=== PATIENT | male | born 1940 | race Caucasian/White ===

== ENCOUNTER 2024-10-11 18:21 | Inpatient (IN) | payer OTHER, SELFPAY ==
[2024-10-11 18:26] VITALS: BP 124/68; BMI 24.5
--- NOTE | 2024-10-11 18:38 | PTCARENOTE ---
Rec'd pt as transfer from [facility]. Pt is AOx3. Tele- V-paced. HR 70s. BP 124/68. Pt on 2L O2 NC on arrival and sating 100%. Pt currently has no complaints of pain/discomfort/sob at this time. Oriented pt to room. Family at bedside. Currently
in bed; call edwar w/in reach.
--- NOTE | 2024-10-11 19:42 | HPS.HSE ---
Family Physician
-
Family Physician: Alek Mireles
Chief Complaint
-
shortness of breath
History of Present Illness
84-year-old male past medical history of CAD status post CABG x 2 in 2018, ischemic cardiomyopathy status post Biotronik biventricular cardiac pacemaker (LINE CLEARANCE FOREMAN-P) last replaced 7 years ago at [place], ventricular tachycardia, permanent atrial
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
on CPAP, presenting as a transfer from [facility] for concern for infected pacemaker/ICD.
Patient originally came to [facility] on 10/04 for fever, cough and shortness of breath. He was initially thought to have pneumonia and treated with ceftriaxone/azithromycin. Blood culture showed MSSA with concern for endocarditis. Patient
underwent TTE which showed severely enlarged right ventricle, severely dilated left atrium, severely dilated right atrium, severe tricuspid regurgitation, no evidence of endocarditis or vegetation. Moderately reduced RV systolic function. Left
ventricular ejection fraction of 55 to 60%. Patient later underwent DAVID which also did not show evidence of endocarditis. Patient was treated with cefazolin repeat blood cultures were negative.
Patient was also gently diuresed while at [facility].
Patient was transferred to [facility] for consideration of pacemaker via revision procedures and lead/device extraction.
He denies any chest pain or shortness of breath at this time but complains of ongoing shortness of breath this hospitalization. Denies any weight gain or weight loss.
He denies smoking or alcohol use or drug use.
His brother had heart disease.
Medical History
Past Medical History
Past Medical History: Reports Other (CAD status post CABG x 2 in 2018, ischemic cardiomyopathy status post Biotronik biventricular cardiac pacemaker (LINE CLEARANCE FOREMAN-P) last replaced 7 years ago at [place], ventricular tachycardia, permanent atrial fibrillation on
Eliquis, moderate to severe tricuspid regurgitation, moderate aortic stenosis, obstruct)
Past Surgical History: Reports Other (CABG )
Social History
Tobacco: Non-smoker
Alcohol: None
Drug: None
Family History
Family History: Not pertinent
Allergies / Home Medications
Allergies reflects when Allergies were last updated in [employer]
Home Medications with original date entered in [employer]
Allergy/Medication List:
Allergies
Allergy/AdvReac Type Severity Reaction Status Date / Time
No Known Drug Allergies Allergy Unknown Unknown Verified 09/27/17 09:15
Home Medications
amlodipine 2.5 mg tablet 2.5 mg PO DAILY 09/27/17
aspirin 81 mg chewable tablet ([facility] Parag Aspirin) 81 mg PO DAILY 09/27/17
finasteride 5 mg tablet 5 mg PO DAILY 09/27/17
furosemide 40 mg tablet 40 mg PO DAILY 09/27/17
glucosamine sulfate 500 mg capsule 2,000 mg PO DAILY 09/27/17
tamsulosin 0.4 mg capsule 0.4 mg PO DAILY 09/27/17
warfarin 2 mg tablet 8 mg PO SUTUTHSA 09/27/17
warfarin 6 mg tablet 6 mg PO MOWEFR 09/27/17
Review of Systems
-
Constitutional: Reports No Symptoms
EENT: Reports No Symptoms
Respiratory: Reports No Symptoms
Cardiac: Reports No Symptoms
Abdomen/GI: Reports No Symptoms
: Reports No Symptoms
Musculoskeletal: Reports No Symptoms
Skin: Reports No Symptoms
Neurological: Reports No Symptoms
Endocrine: Reports No Symptoms
Hematologic/Lymphatic: Reports No Symptoms
Psych: Reports No Symptoms
Physical Exam
Vital Signs
Vital Signs
Temp Pulse Resp BP Pulse Ox
98.3 F 70 18 124/68 98
10/11/24 18:25 10/11/24 18:30 10/11/24 18:25 10/11/24 18:26 10/11/24 18:26
Physical Exam
General: Well Developed, Well Nourished and No Apparent Distress
HEENT: NormoCephalic, Moist mucous membranes and Atraumatic
Respiratory: Clear
Cardiac: S1/S2 and Regular Rhythm; No Murmur or Rub
GI: Soft, Non Tender, Non Distended and Normal Bowel Sounds; No Organomegaly
Rectal: Deferred by Provider
Musculoskeletal: No Clubbing, No Cyanosis and No Edema
Skin: No Rash
Neuro: Nonfocal/grossly intact
Data Reviewed
-
Lab Data: Labs Reviewed by me
Old Records: Reviewed
Impression/Plan
-
IMPRESSION:
PLAN:
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
-Repeat blood cultures were clear as per documentation although could not obtain exact date
-TTE and DAVID did not show any evidence of vegetation or endocarditis
-Recheck blood cultures
- Cefazolin for 6 weeks
- Cardiology consult
- ID consulted
- N.p.o. postmidnight for pacemaker revision procedure/device extraction
- Hold Eliquis, heparin drip instead
# Severe aortic stenosis
- Would likely need evaluation for TAVR after evaluation of pacemaker
CAD status post CABG x 2 in 2018
Chronic HFpEF/ischemic status post Biotronik biventricular cardiac pacemaker
- Was gently diuresed at [facility], hold further diuresis for now
- Continue spironolactone
-Continue metolazone
-Resume home torsemide 20 mg twice daily
- Patient normally on Coreg 6.25 twice daily, resume
History of ventricular tachycardia
Permanent atrial fibrillation
- Heparin drip instead of Eliquis
Moderate to severe tricuspid regurgitation
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
Hyperlipidemia
- Continue statin
Obstructive sleep apnea
- Continue CPAP at night
BPH
- Continue finasteride, tamsulosin
GERD
- Continue Protonix
Anxiety/depression
- Continue sertraline
Full code
DVT prophylaxis�heparin drip
Cardiac diet, n.p.o. past midnight
[2024-10-11 21:11] LABS: Hematocrit 34.3 % (39.0-52.0); Hemoglobin 11.3 g/dL (13.0-18.0); Mean Corp Hgb Conc. 32.9 g/dL (33.0-37.0); Mean Corpuscular Volume 99.7 fL (80.0-94.0); Platelet Count 119 10^3/uL (130-400); Red Cell Dist. Width 13.9 % (11.5-14.5)
[2024-10-11 21:13] LABS: APTT 37.3 Sec (23.4-35.0)
[2024-10-11 21:18] VITALS: BMI 24.5
[2024-10-11] MEDS: HEPARIN 25000 UNITS/250 ML IV (21:31)
[2024-10-11] MEDS: COREG 6.25 MG PO (21:34)
[2024-10-11] MEDS: ANCEF 10 IV (21:34)
[2024-10-11 21:36] VITALS: BP 141/68
[2024-10-11 23:01] VITALS: PULSE 70
[2024-10-12] VITALS (15 sets, daily range): BP systolic 84–150; BP diastolic 53–128
--- NOTE | 2024-10-12 00:33 | PTCARENOTE ---
Received pt @ change of shift. Pt had just been tx from [facility]. Hospitalist informed. AAOx3, VSS on 2L NC. Admission completed.
Once orders in place-- Blood work completed, heparin gtt initiated @ 800 units/hr. Discussed plan of care for evening, including PTT draws Q6H and NPO after midnight. Pt verbalizes understanding. Call vann within reach.
[2024-10-12 03:40] LABS: Hematocrit 30.9 % (39.0-52.0); Hemoglobin 10.2 g/dL (13.0-18.0); Mean Corp Hgb Conc. 33.0 g/dL (33.0-37.0); Mean Corpuscular Volume 98.1 fL (80.0-94.0); Nucleated Red Blood Cells % 0 % (-); Platelet Count 114 10^3/uL (130-400); Red Cell Dist. Width 14.0 % (11.5-14.5)
[2024-10-12 03:53] LABS: APTT 46.9 Sec (23.4-35.0)
[2024-10-12 04:06] LABS: ALT (SGPT) 21 U/L (0-50); AST (SGOT) 27 U/L (17-59); Albumin 3.4 g/dl (3.5-5.0); Alkaline Phosphatase 98 U/L (38-126); Blood Urea Nitrogen 24 mg/dl (9-20); Calcium 9.7 mg/dl (8.4-10.2); Carbon Dioxide 35 mmol/L (22-30); Chloride 99 mmol/L (98-107); Estimated Creatinine Clearance 62 ml/min; Glucose 104 mg/dl (70-99); Potassium 4.3 mmol/L (3.5-5.1); Sodium 136 mmol/L (135-145); Total Protein 6.8 g/dl (6.3-8.2); eGFR > 60.00
[2024-10-12] MEDS: ANCEF 10 IV ×3 (06:23→22:32)
--- NOTE | 2024-10-12 08:09 | CON.CAR ---
Addendum entered and electronically signed by León Vicente MD 10/12/24 10:27:
Patient was seen and evaluated personally. I agree with the note, documentation and plan of care and physical examination as noted below.
Briefly, 84-year-old gentleman with a history of coronary disease, peripheral artery disease, recovered cardiomyopathy with LVEF of 55%, went to tachycardia, permanent atrial fibrillation, hypertension, moderate aortic stenosis and severe TR, severe
right-sided RV failure, history of CVA, obstructive sleep apnea on CPAP. Patient does have Biotronik SURGICAL CODER�P device on the right shoulder. Patient's atrial and ventricular leads are from 2014 and CS lead was upgraded back in 2018. Patient did develop
ventricular tachycardia and required a defibrillator which was subcutaneous [employer] defibrillator which was placed in the left axilla. He does have a history of CABG x 2 in 2018 which was done with thoracotomy. He has had left and right
sided CEA. His aortic stenosis is managed conservatively. He presented now with fevers, rigors, chills, and fatigue and pneumonia which was treated with ceftriaxone but had developed MSSA. With MSSA bacteremia, he underwent DAVID with high suspicion
of endocarditis. No obvious vegetations were noted. Patient was sent to [facility] for extraction of the hardware. Patient is 100% BiV paced. He has not used his atrial lead with his permanent atrial fibrillation. Our plan is to remove all
hardware including atrial, ventricular and CS lead along with the generator. Postop we will pacing with temporary pacemaker. We will proceed if appropriate to place leadless pacemaker which reduces to infections.
Patient remains moderate to high risk with this severe complicated past medical history and 12 years of pacemaker leads. Patient's venous system was already occluded back in 2018 when he had an upgrade. It is expected to have significant adhesions
and risk of perforation is quite high. Given his prior vascular and cardiac history, the risk of complications are moderate to high. This is life-threatening for this patient. The bacteremia itself is dangerous and less likely to be cleared with
antibiotics. We discussed in detail the options of conservative management with chronic antibiotics versus extraction of the vascular system. With long discussion with patient and his , we decided to proceed with the extraction procedure for the
whole system and proceeding with leadless pacemaker as noted above.
Original Note:
Consultation
Consultation Request
Date/Time Consultation Requested: 10/11/24 10:25p
Date/Time Consultation Performed: 10/12/24 8a
Requesting Provider: Dr. Cervantes
Performing Provider: SARITA Davis for Dr. Vicente
Reason for Consultation: lead extraction
Medical History
-
Chief Complaint: MSSA bacteremia
History of Present Illness:
Mr. Newton is an 84 yo male (known to Dr. Sebastián Khanna at [facility]) with CAD s/p CABG x 2 in 2018, ICM s/p Biotronik BiV PPM, h/o VT, permanent atrial fibrillation on Eliquis, HTN, HLD, valvular heart disease (mod/severe TR, mod ), PAD s/p left
CEA and right CEA c/b post-op CVA, and LEONOR on CPAP, who presents as a transfer from [facility] for lead extraction due to MSSA bacteremia. He is scheduled today with Dr. Vicente for lead extraction and reimplant. He is admitted to the
hospitalist service. Currently he c/o feeling weak/fatigued.
Past Medical History
Past Medical History: Other (as above)
Past Surgical History: Other (as above)
Social History
Tobacco: Non-Smoker
Alcohol: None
Personal:
Living: With Family
Employment: Retired
Family History
Family History: Reviewed & Not Pertinent
Allergies / Home Medications
Allergy/AdvReac Type Severity Reaction Status Date / Time
No Known Drug Allergies Allergy Unknown Unknown Verified 09/27/17 09:15
�Medication �Instructions �Recorded �Confirmed �Type
finasteride 5 mg tablet 5 mg PO DAILY 09/27/17 09/27/17 History
tamsulosin 0.4 mg capsule 0.4 mg PO DAILY 09/27/17 09/27/17 History
apixaban 2.5 mg tablet (Eliquis) 2.5 mg PO BID 10/11/24 10/11/24 History
carvedilol 6.25 mg tablet (Coreg) 6.25 mg PO BID 10/11/24 10/11/24 History
metolazone 2.5 mg tablet 2.5 mg PO DAILY 10/11/24 10/11/24 History
pantoprazole 40 mg tablet,delayed 40 mg PO DAILY 10/11/24 10/11/24 History
release
rosuvastatin 10 mg tablet 10 mg PO DAILY 10/11/24 10/11/24 History
sertraline 25 mg tablet 25 mg PO DAILY 10/11/24 10/11/24 History
spironolactone 25 mg tablet 12.5 mg PO DAILY 10/11/24 10/11/24 History
Review of Systems
-
History Source: Patient
All other systems: Negative unless noted
Physical Exam
Vital Signs
Temp Pulse Resp BP Pulse Ox
98.3 F 69 18 98/55 94
10/12/24 03:36 10/12/24 03:30 10/12/24 03:36 10/12/24 03:09 10/12/24 03:36
Lab Results
10/12/24 03:23
10/12/24 03:23
Physical Exam
General: Well Developed and No Apparent Distress
HEENT: Normocephalic, Anicteric and Moist Mucous Membranes
Respiratory: Clear and Non Labored Respirations
Cardiac: S1/S2 and Irregular Rhythm
Breast: Deferred by me
GI: Soft, Non Tender and Normal Bowel Sounds
Rectal: Deferred by Provider
Genito-urinary: No Costovertebral Tender
Musculoskeletal: No Clubbing, No Cyanosis and No Edema
Skin: Warm and Dry
Neuro: AO x 3
Hematologic/Lymphatic: No Lymphadenopathy
Psych: Calm
Impression / Plan
-
MSSA Bacteremia - acute, treated with IV ABX per ID.
- concern for infected BiV PPM.
BiV PPM - Biotronik device.
- plan for lead extraction and reimplant today with Dr. Vicente.
CAD - stable w/o angina, continue medical therapy.
- s/p CABG x 2
HTN - stable on meds, continue.
Afib - permanent.
- rate controlled on Coreg, continue.
- Eliquis held for procedure, on arrival started on IV Heparin that was just turned off procedure.
LEONOR - stable on CPAP.
Data Reviewed
-
EKG: Tracing Personally Visualized and interpreted
Medical Tests (Nuc Med, Echo etc): Report Reviewed by me (echo 08/2024: EF 50-55%, mild , RV is severely dilated and moderate to severely hypokinetic, RA massively dilated, LA mod dilated, severe TR, mild MR)
Labs: Labs Reviewed by me
Old Records: Reviewed
[2024-10-12] MEDS: PROTONIX 40 MG PO (09:10)
[2024-10-12] MEDS: ALDACTONE 12.5 MG PO (09:10)
[2024-10-12] MEDS: PROSCAR 5 MG PO (09:10)
[2024-10-12] MEDS: CRESTOR 10 MG PO (09:10)
[2024-10-12] MEDS: FLOMAX 0.4 MG PO (09:10)
[2024-10-12] MEDS: ZOLOFT 25 MG PO (09:11)
[2024-10-12] MEDS: COREG 6.25 MG PO (09:11)
[2024-10-12] MEDS: ZAROXOLYN 2.5 MG PO (09:12)
--- NOTE | 2024-10-12 09:35 | CON.ID ---
Consultation
-
Date/Time Consultation Requested: October 11, 20242225
Date/Time Consultation Performed: October 12, 2024 3680
Requesting Provider: Dr. Hitesh Cervantes
Performing Provider: Dr. Yvonne Pryor
Reason for Consultation: MSSA bacteremia
Chief Complaint / Past History
Chief Complaint
Weakness and fever
History of Present Illness
History obtained from review of outside medical records, from patient and from his at bedside. He is an 84-year-old male with history of atrial fibrillation, ischemic cardiomyopathy status post pacemaker placement, AICD placement, aortic
stenosis who recently presented to [facility] October 04 with progressive weakness, then developed fever, chills, confusion, cough and shortness of breath. In the ED temperature 100.8. Positive leukocytosis. Chest x-ray showed small
bilateral pleural effusions. Admission blood cultures grew methicillin-sensitive Staphylococcus aureus. He was seen by infectious disease who changed to ceftriaxone/azithromycin to cefazolin 2 g IV every 8 hours and recommended DAVID. October 10 DAVID
showed severe aortic stenosis, severely enlarged right ventricle, however no vegetation seen valves or device leads. Device extraction still recommended and therefore patient was transferred to [facility] yesterday. Patient reports
he is feeling better. Mentation is now at baseline. No further chills. He denies chest pain. Cough improving. He still feels weak. No other foreign body except for cardiac devices. No back pain.
Past History
Additional Past Medical History:
Atrial fibrillation
CAD status post CABG x 2
Ischemic cardiomyopathy status post Biotronik biventricular cardiac pacemaker (GRINDING WHEEL INSPECTOR-P) last replaced 7 years ago at [place]
Aortic stenosis
LEONOR on CPAP
Bilateral CEA
Allergy History:
No Known Drug Allergies Allergy (Unknown, Verified 09/27/17 09:15)
Unknown
Medications Reviewed: Yes
Current Antibiotics:
cefazolin
Social History
Tobacco: Non-Smoker
Alcohol: None
Drug: None
Personal:
Living: With Family
Family History
Family History: Not Pertinent
Review of Systems
Review of Systems
General: Change in Appetite
HEENT: Negative Headache or Pharyngitis
Cardiovascular: Dyspnea; Negative Chest Pain
Gasteroenterology: Negative Nausea, Vomiting or Diarrhea
Genital / Urological: Negative Dysuria or Flank Pain
Endocrine: Weakness and Fatigue
Musculoskeletal: Negative Joint Swelling or Arthralgias
All systems: All other systems were reviewed and were negative
Vital Signs
Temp Pulse Resp BP Pulse Ox
98.6 F 73 18 121/67 96
10/12/24 07:56 10/12/24 07:56 10/12/24 07:56 10/12/24 07:56 10/12/24 07:56
Physical Exam
Physical Exam
Constitutional: No Acute Distress and Comfortable
Head: Other (No frontal or max or sinus tenderness)
Eyes: No Conjunctival Hemorrhage and Sclera Anicteric
Cardiovascular: Regular Rate, S1/S2 and Murmur (Right upper sternal border)
Pulmonary: Rales (R base) and Other
Gastrointestinal: Soft, Non Tender and Non Distended
Genito-Urinary: Negative CVA Tenderness
Extremities: Negative Edema
Musculoskeletal: Negative Spinal Tenderness
Neurological: AO x 3
Lab / Diagnostic Study Results
10/12/24 03:23
10/12/24 03:23
Abs Immat Gran (auto) 0.1 10^3/uL (0-0.05) H 10/12/24 03:23
Absolute Neuts (auto) 5.7 10^3/uL (1.4-6.5) 10/12/24 03:23
Absolute Lymphs (auto) 0.9 10^3/uL (1.2-3.4) L 10/12/24 03:23
Absolute Monos (auto) 0.6 10^3/uL (0.1-0.6) 10/12/24 03:23
Absolute Basos (auto) 0.0 10^3/uL (0-0.2) 10/12/24 03:23
Immature Gran % 1.5 % (0-0.5) H 10/12/24 03:23
Neutrophils % 71.6 % (42.2-75.2) 10/12/24 03:23
Lymphocytes % 11.0 % (20.5-51.1) L 10/12/24 03:23
Monocytes % 8.1 % (1.7-9.3) 10/12/24 03:23
Eosinophils % 7.3 % (0-6) H 10/12/24 03:23
Basophils % 0.5 % (0-2) 10/12/24 03:23
Microbiology Results
Micro:
10/11/24 21:30 Blood Culture - Pending
Blood/Venous
10/11/24 20:47 Blood Culture - Pending
Blood/Venous
10/11/24 18:48 MRSA Screen - Pending
Nose
Assessment / Plan
# MSSA bacteremia OSH (sensitive: oxacillin, tetra, t/sulfa, clinda)
# Fever resolved
# Presence of AICD/PPM
# Afib, CAD, ICM
- Follow repeat blood cultures
- Outside DAVID neg vegetation
- Agree with AICD/PPM total extraction, culture leads.
- Continue cefazolin 2g IV q8 x 6 weeks from device extraction.
Care Review
Plan reviewed with: Physician (Dr. Carina Gates)
--- NOTE | 2024-10-12 10:35 | W.PN.UPDATE ---
Update Note
Progress Note Update
Consent for lead extraction:
Mr. Newton is an 84 year old male (known to Dr. Khanna, his primary Marketing Researcher) with recovered heart failure with EF 50-55% s/p right shoulder MANAGER OF LEARNING-P (Atrial and RV leads fro 2013; and CS upgraded lead from 2018 Venous occlusion noted at that time),
and VT s/p subQ ICD placement, moderate , permanent atrial fibrillation with h/o CAD s/p two vessel CABG in 2018, PAD s/p left and right CEA for carotid stenosis, CVA presented with MSSA bacteremia and is admitted with Endocarditis/hardware
infection and is recommended for hardware removal with laser and lead mechanical engineer extraction. Patient is pacemaker dependent and will be in need for temporary / permanent pacemaker placement while still on antibiotics and any other sources of
infection remains.
Date of the consent and discussion:
10/12/2024
Indications:
MSSA bacteremia and need for hardware removal / lead extraction and re-implantation with pacemaker dependency.
Performing Physician:
León Vicente MD
Condition of Patient at Time of Consent:
Patient was alert and awake and was hemodynamically stable with no neurological or vascular compromise. He was able to understand the risks involved and asked appropriate questions. He was noted to be in adequate state of mind to provide informed
consent. His was present in the room and participated in the consent discussion. Both of them were informed in detail. All questions answered. Patient, his and all other involved healthcare providers are in agreement for the need for the
extraction.
Detailed Description of the Consent:
Informed consent was obtained from the patient after a full explanation of the risks and benefits of the procedure including the risks of sedation and anesthesia.
I was able to discuss the case in detail with the patient. The risks of major complications including bleeding, infection, venous rupture, removal of the entire system without the ability to replace it, cardiac eversion or damage to the cardiac
tissue, malignant arrhythmia, coronary vascular damage, need for urgent bypass surgery and sternotomy, even stroke and were discussed in detail. The risk of major complications are <5% per lead. Patient understood the risks and benefits
involved with the procedure.
He agrees that he needs to have his device extracted. He is at a high risk with prior cardaic surgery, RV failure, long standing system, prior vascular occlusion, and sepsis with hypotension for the procedure. Given his limited options available, I
was able to offer him the laser / lead mechanical engineer extraction and re-implantation.
Plan is for lead extraction and re-implant a temporary permanent pacemaker and once infection clears then subsequent re-implantation of pacemaker � temporary permanent vs leadless pacemaker.
MSSA bacteremia / sepsis noted. Blood is now clear for the past one day and acceptable for the implant of temporary permanent device.
Tele- V Paced
Plan for Laser lead extraction
Summary:
Informed consent was obtained for laser and lead mechanical engineer extraction and hardware removal and implantation of temporary or permanent pacemaker.
--- NOTE | 2024-10-12 10:37 | PTCARENOTE ---
Rec'd Pt at change of shift, A,A+Ox3, Pt c/o feeling weak, with general body aches. Lungs with bibasilar crackles, O2 sat on RA 89-90%. Pt back on O2 at 2/l/min, O2 sat 96% on 2L. Heparin drip D/C'd as per order. Pt going for lead extraction today.
Type and crossmatch drawn as ordered. PT seen by anethesia, Dr Vicente and Dr Gates today. clinical lab specialist nurses came to pick him up, report given to Brittany.
--- NOTE | 2024-10-12 11:02 | CM ---
pt in clinical lab scientist for procedure
[2024-10-12 13:08] LABS: ACT-LR - POC 131 Seconds (116-155)
--- NOTE | 2024-10-12 13:46 | W.PN.HOSP.TC ---
Today's Communication/Plan
-
Eliquis resumption per cardiology recommendation
Maintained on metolazone, further diuresis per cardiology
Continue on Ancef
Records reviewed
Assessment / Plan
Assessment / Plan
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
-Repeat blood culture reported to be clear at [facility]
-TTE and DAVID did not show any evidence of vegetation or endocarditis
-Cefazolin for 6 weeks
- ID consulted for further help
-EP cardiology to patient for pacemaker extraction and reimplantation
-Eliquis switched to heparin drip and can be resumed back per cards
# Severe aortic stenosis
- Would likely need evaluation for TAVR after evaluation of pacemaker
#CAD status post CABG x 2 in 2018
Chronic HFpEF
Ischemic cardiomyopathy
-Continue spironolactone
-Continue metolazone, further diuresis per cards.
-Patient normally on Coreg 6.25 twice daily, resume
# History of ventricular tachycardia
Permanent atrial fibrillation
- Heparin drip instead of Eliquis
Moderate to severe tricuspid regurgitation
Obstructive carotid artery disease status post left CEA
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
Hyperlipidemia - Continue statin
Obstructive sleep apnea - Continue CPAP at night
BPH - Continue finasteride, tamsulosin
GERD - Continue Protonix
Anxiety/depression - Continue sertraline
Full code
DVT prophylaxis�heparin drip
case discussed with ID
Records from [facility] reviewed.
Total time spent ; 52 mins
Anticipated Discharge: 24 - 48 hours
Subjective/Interval History
-
Date of Service: October 12, 2024
Resting comfortably in bed
Having some shortness of breath
On oxygen through nasal cannula
Afebrile
Objective Data
-
Labs:
Laboratory Results
08/08/25 08/08/25
03:23 10:20
WBC 7.9
Hgb 10.2 L
Hct 30.9 L
Plt Count 114 L
APTT 46.9 H Pending
Sodium 136
Potassium 4.3
Chloride 99
Carbon Dioxide 35 H
BUN 24 H
Creatinine 0.8
Glucose 104 H
Calcium 9.7
Total Bilirubin 0.9
AST 27
ALT 21
Alkaline Phosphatase 98
Vital Signs:
Vital Signs
Temp Pulse Resp BP Pulse Ox
98.6 F 70 18 121/67 89
10/12/24 07:56 10/12/24 10:15 10/12/24 07:56 10/12/24 08:51 10/12/24 08:51
Review of Systems
-
Respiratory: Reports Trouble Breathing; Denies Cough
Cardiac: Reports No Symptoms
Abdomen/GI: Reports No Symptoms
Physical Exam
-
General: No Apparent Distress and Comfortable
HEENT: Oxygen (NC)
Respiratory: Rhonchi and Other (Right chest pacemaker scar - no tenderness/swelling)
Cardiac: Regular Rhythm and S1/S2; Negative Murmur or Rub
Musculoskeletal: No Edema
Neuro: Awake, Alert, Oriented, No Motor Deficits and Nonfocal/Grossly Intact
Psych: Calm
--- NOTE | 2024-10-12 16:00 | PTCARENOTE ---
Patient received from OR. Pt drowsy but arrousable. AOx4, 100% v paced on monitor with underlying Afib, 6L face mask transferred to 4L NC, patient satting 99%. O2 gradually weaned to 2L NC, satting 100%. SBP 110s-120s via L brachial ART line. Cuff
and ART correlate at this time, ART waveform appropriate. Hypoactive bowel sounds. Temp sensing eric in place, I/Os cahrted. Core temp 95F at this time, bear hugger applied. B/L radial puncture dressing CDI. L groin site CDI. R groin site with
figure of 8 sutures intact, site CDI. B/L groin soft with no oozing or hematoma noted at this time. R upper chest wall dressing with sterri strips and aquacel in place, CDI. EKG obtained. TeraFirrma at bedside to check micra that was placed in
OR. at bedside. Initially, while patient was still coming out of anesthesia, patient required frequent reminder to no bend knees and keep legs and L arm straight. Patient redirectable. All needs met at this time, call vann within reach.
--- NOTE | 2024-10-12 16:21 | ITS.CL.PN ---
[employer] - Procedure Note
Procedure
Procedure Note:
Extraction Procedure:
Laser Extraction of Cardiac Resynchronization Therapy (DEMONSTRATOR SALES-P) system including extraction of RV lead, RA pacing lead and the coronary sinus left ventricular lead and placement of temporary pacemaker and then implantation of leadless pacemaker.
Mr. Newton is an 84 yo male (known to Dr. Hayden Khanna at [facility]) with CAD s/p CABG x 2 in 2018, ICM s/p Biotronik BiV PPM, h/o VT, permanent atrial fibrillation on Eliquis, HTN, HLD, valvular heart disease (mod/severe TR, mod ), PAD s/p left
CEA and right CEA c/b post-op CVA, and LEONOR on CPAP, with MSSA bacteremia and endocarditis and is recommended hardware removal. Patient was referred for lead extraction and removal of all hardware.
Indications: MSSA endocarditis
Date of the Procedure: 10/12/2024
Pre-Operative Diagnosis: Infected DEMONSTRATOR SALES-P system
Post-Operative Diagnosis: Infected DEMONSTRATOR SALES-P system
Procedure Performed: Multiple lead extraction, pocket washout and generator removal, temporary pacer wire placement and implantation of leadless pacemaker.
�
Performing Physicians:
León Vicente MD
Anesthesia:
See anesthesia records
Detailed Description of the Procedure:
Written informed consent was obtained from the patient after a full explanation of the risks and benefits of the procedure. The patient was brought to the lab in the fasting state. Prophylactic antibiotics were given prior to the start of the
procedure. Continuous electrocardiographic and hemodynamic monitoring was initiated.
The initial rhythm was BIV paced rhythm with underlying atrial fibrillation. .
The sub-Q ICD device was interrogated and all the tachy-therapies were turned off.
General anesthesia with intubation and mechanical conventional ventilation used. Anesthesia staff performed intubation monitored the patient during case. The ventral torso was meticulously prepared with surgical scrub and allowed to dry with no
pooling. Sterile draping was applied to cover the operative field. The image intensifier was draped with a sterile bag and positioned over the patient's chest.
A surgical pause was performed in accordance with hospital regulations. Anesthesia service provided sedation as reported separately. Antibiotics administered IV for risk of bacterial colonization.
Groin Prep and vascular access:
After infiltration with lidocaine, large bore venous access was established via the right and left femoral veins. An intra-arterial catheter was placed via the right femoral artery for emergency access.
Following sheath were placed.
��������������� 8Fr in right femoral vein upgraded to
��������������� 12 Fr peel away sheath in right femoral vein
��������������� 6 Fr sheath in left femoral vein
��������������� 5Fr sheath in right femoral artery
The left femoral artery was cannulated but the wire could not be advanced and no sheath was placed.
Using the 12 Fr sheath the guidewire was placed from the right femoral vein to the right subclavian vein.
Temporary Pacemaker Placement:
A 6Fr temporary wire was placed in the right groin via a 6Fr sheath. The temp wire was advanced and placed in the RV with adequate threshold noted. The temp wire was placed at VVI 70.
It was removed under fluoroscopy guidance at the end of the case.
Endovascular occlusion balloon deployment:
A 6 Fr sheath was placed and the guidewire was placed from the right femoral vein to the right IJ.
Then a 12 Fr sheath was placed over the guidewire was placed from the right femoral vein to the right IJ. An endovascular occlusion balloon was advanced over the guidewire into the SVC. The balloon was inflated with 20% contrast and adequate
occlusion of the SVC identified. The balloon was deflated and pulled down to the IVC.
Another 6 Fr sheath was placed in the left femoral vein for the anesthesia administration.
Pocket Exploration:
After infiltration with lidocaine, an incision was made in the right delto-pectoral groove over the previously implanted device. Using blunt dissection and electrocautery, the incision was carried down to the level of the device, being careful to
maintain adequate hemostasis and not disrupt the previously implanted leads. Fluoroscopy was performed with showed normal appearance of the existing leads and during the procedure. Superficial cultures were obtained. The generator pocket was
accessed. There was cloudy fluid draining from the pocket and the aerobic and anaerobic cultures were obtained. The generator was removed from the pocket. The leads were individually released from the scar tissue and the fibrotic tissue was removed.
A purse string suture using 2-0 Vicryl was deployed to be tied at the end for hemostasis.
LV lead extraction:
The leads were stuck and could not be removed with manipulation and manual pull. The lead was cut and was sized and an EZ LLD was deployed that was successfully moved to the proximal electrode of the CS lead. The 14F JumpChat Laser Sheath was
tested using the CVX-300 system and found to meet specifications. An ETHICON SA8 2 Perma-hand Silk, black braided, 60inch was fixed to the proximal end of the lead to establish additional control.
Under fluoroscopic guidance, tension was applied to the lead via the locking stylet and the suture. Along with an outer sheath, the laser sheath was advanced over the pacing lead under fluoroscopic guidance until resistance was met. Laser energy was
applied in up to 10-second bursts in regions of resistance allowing advancement of the sheaths under fluoroscopic guidance. The CS lead was able to free up and was able to be pulled out. �
RA lead extraction:
The RA lead was removed from the generator and a standard sylet was advanced to the RA lead. It was not able to reach the tip. The rotatory tool was able to unscrew the active fixation mechanism and was able to retrieve the screw into the lead. The
lead remained in place and would not come out. The lead was clipped approximately 4 cm proximal to the entry site into the vein using lead cutting scissors.
The inner channel of the lead was sized and an EZ Lead Locking Device (LLD) was advanced and was able to reach till the bend of the atrial lead. It could not be advanced to the distal tip. The locking mechanism was engaged and the stylet was fixed
in position in the lead. An ETHICON SA8 2 Perma-hand Silk, black braided, 60inch was fixed to the proximal end of the lead to establish additional control.
The lead with the LLD was pulled and laser energy was applied at the subclavian vein. It was able to move out of the RA straightening the atrial loop. With counter traction the lead was pulled and the atrial lead was freed from the atrial tissue.
The tip got freed and the whole lead was able to be pulled out.
Patient remained hemodynamically stable. DAVID showed no accumulation around the heart.
RV lead extraction:
The RV lead was removed from the generator and a stylet was placed that was not able to go beyond the bend under the subclavian vein. Using a rotatory tool the lead was unscrewed but the tip screw did not move.
The lead was clipped approximately 4 cm proximal to the entry site into the vein using lead cutting scissors. The inner channel of the lead was sized and Lead Locking Device (LLD) EZ was inserted into the lead. The LLD was not able to go any lower
than then the subclavian vein. The locking mechanism was engaged and the stylet was fixed in position in the lead. An ETHICON SA8 2 Perma-hand Silk, black braided, 60inch was fixed to the proximal end of the lead to establish additional control.
A 14F JumpChat Laser Sheath was tested using the CVX-300 system and found to meet specifications. Under fluoroscopic guidance, tension was applied to the lead via the locking stylet and the suture. Along with an outer sheath, the laser sheath
was advanced over the pacing lead under fluoroscopic guidance until resistance was met. Laser energy was applied in up to 10-second bursts in regions of resistance allowing advancement of the sheaths under fluoroscopic guidance. Laser energy was
applied at the venous entry site, and in the subclavian vein. The RV lead was freed and was pulled out of the sheath.
The lead and catheters were withdrawn from the venous system. Hemostasis at the venous entry site was obtained using a 2-0 Vicryl pursestring suture.
The pocket was cleaned and rinsed with antibiotics solution
The deep tissue was closed with 2-0 VLOCl. The outer dermis and skin was closed using 4-0 Monocryl sutures. Steri-strips and a sterile dressing were then applied.
�
Leadless Pacemaker implantation:
The Balloon was removed and the guidewire was used to dilate the venous access. The venous access was gradually dilated from 14-24 Polish dilators. Then the 27 Fr Micra outer sheath was successfully and carefully advanced to the RA.
The delivery system of the Micra was prepped with removal of all air underwater and was advanced into the sheath to the RA with continuous saline irrigation. The sheath was pulled back to the IVC and the delivery sheath was advanced into the RV
cavity. The delivery system as placed against the ventricular septum using JIMÉNEZ and KYRGYZ fluoroscopic views. Once adequate location was confirmed, the locked sutures were unlocked and the Micra was slowly advanced pulling back the delivery sheath
releasing the anchoring hooks. The Micra was attached successfully to the RV septum. The threshold was elevated and decision was made to relocate to a different location.
Multiple locations were tested but all had low amplitude and high thresholds. Finally an apical septal location had excellent sensing and thresholds. The PM was tested and adequate sensing and threshold noted.
Next, the tug test was done with the pulling the attached suture under fluoroscopic guidance with the three anchors securely embedded and showed movement and widening of the anchors with pulling them. The PPM again was tested showing stable
thresholds and excellent sensing.
The one side of the suture was cut and the other side was gradually and carefully pulled until free. The delivery system sheath was pulled back to the IVC and the PPM was again tested showing stable numbers.
Procedure End:
The procedure was tolerated well.
A pressure dressing was applied.
The sub-Q ICD was interrogated and the therapies were turned on. The new QRS was low and ICD had significant T wave oversensing increasing risk for the inappropriate shock. The following chagnes were made.
-��������� The Micra was set VVIR 60 to 90 bpm. The higher then 90 bpm would potentially result T wave oversensing induced inappropriate shock,
-��������� The sub-Q ICD therapy threshold increased from 180 bpm to 200 bpm.
The sheaths were removed from the groin. Manual pressure applied to access sites to achieve hemostasis. Anesthesia was reversed and the anesthesia staff extubated then observed the patient until the return of pre-sedation mental status. The patient
was transferred to the recovery area.
Estimated Blood loss:
10 cc
Specimens Removed:
Deep pocket aerobic and anaerobic cultures were obtained..
Urine output:
None
Packs / Drains/ Tubes:
None
Instrument / Sponge Count Correct:
Yes
Complications of the Procedure:
None
Condition of Patient at Time of Transfer:
Hemodynamically stable with no neurological or vascular compromise.
Explanted Device information:
Device information: �
��������������� Generator: Biotronik DEMONSTRATOR SALES-P; Model: [id number]; Serial # [id number]
������������������������������� -implanted on 12/12/2017; explanted on 10/12/2024
��������������� Atrial Lead: Biotronik; Model: [id number]; Serial # [id number]
������������������������������� -implanted on 10/01/2013; explanted on 10/12/2024
��������������� RV Lead: Biotronik; Model: [id number]; Serial # [id number];
������������������������������� -implanted on 10/01/2013; explanted on 10/12/2024
�������������������������������
��������������� LV pacing lead: Biotronik; Model: [id number]; Serial # [id number]
������������������������������� -implanted on 12/12/2017; explanted on 10/12/2024
Implanted device Information:
Medtronic Leadless (Micra) pacemaker-
��������������� Model #: [id number]; Serial Number: [id number] @ RV apical septum
Osvaldo parameter settings were VVIR 70 bpm.�
Measured data in the Micra was sensing of 4.1mV, impedance of 690 ohms and the threshold of 0.25 V at 0.4ms.
Summary:
Successful extraction of the DEMONSTRATOR SALES-P system, placement of temporary pacemaker and implantation of permanent leadless pacemaker
Results/Recommendations:
1-Please follow up CXR and ECHO
2. Please Admit to CVICU for observation.
.
�
León Vicente MD [facility]
Electrophysiology
�
--- NOTE | 2024-10-12 16:24 | CM ---
Reviewed chart. Met with Mrs. Newton to review discharge plans. Mr. Newton was asleep. She states prior to admission they resides together in a one story home with one step to enter. He has a full flight of steps from the basement to get to the main
living area. She states prior to admission he was ambulating with a single point cane. She states he has a walker, single point cane, shower chair and CPAP Machine at home She states he was in [facility] a week prior to transfer. She
states he will need IV ABX for six weeks. She states he has a prescription plan and PACE. She states he has had [facility] in the past. She also states he was in [facility] eleven years ago. She states her son resides two blocks
away and is supportive. She states her daughter resides in [facility] and is also supportive. Will need to see his current functional status to see if he will have any skilled care needs. Telephone call to [facility] Liaison to make
the referral. Sent referral to [facility] to check on co-pay and coverage for IV ABX. Medical work-up in progress. The discharge plan plan is to return home with his spouse and IV ABX with [facility] medically stable.
--- NOTE | 2024-10-12 17:37 | RESPNOTE ---
discussed cpap with patient and family. Patient had difficulty tolerating mask overnight, family says patient does wear a full face mask and recently a new one. when asked if possibility to bring his mask and/or cpap unit from home, family stated
they live an hour away and would not be tonight. patient is agreeable to try hospital cpap again tonight with different mask, reviewed undernose and nasal masks as options, left at bedside to trial later this evening.
--- NOTE | 2024-10-12 19:00 | PTCARENOTE ---
Patient HOB 30 degrees. B/L groin sites remain soft with no sign of oozing or hematoma, dressings CDI. L brachial ART line, waveform appropriate and correlated with cuff pressures. I/Os charted for eric output. Pt does not c/o pain at this time. Pt
AOx4, v paced on monitor, 98% on 1L NC. r upper chest site CDI. Portable CXR completed. All needs met at this time, call vann within reach. at bedside. Handoff report given to nightshift RN.
--- NOTE | 2024-10-12 20:00 | PTCARENOTE ---
Assumed care of the patient at 1900. Patient in bed, at bedside. AOx3, drowsy, Umm hugger in place for temp 95.4; see work list for settings; no c/o pain at this time. 100% V paced on CM rate 70, murmur auscultated, pulses palpable aside from
LDP present with Doppler; no edema noted. On 1LNC, lungs dim at the bases, frequent moist productive cough, patient c/o feeling SOB, satting 97+% on 1L. No c/o n/v, abdomen distended, nontender, hypoactive BS. Atkinson catheter in place draining a
small amount of concentrated yellow urine. RCW Aquacel in place CDI no drainage; B/L groin dressings in place CDI, soft, no oozing or hematomas noted B/L; figure 8 suture in R groin pending removal per order. PIV x2 INT; L brachial art line present;
leveled, calibrated, and flushed. See nursing worklist for additional intervention details.
[2024-10-12] MEDS: COREG PO (21:26)
[2024-10-12] MEDS: NSS 250 IV (21:41)
[2024-10-13] VITALS (28 sets, daily range): BP systolic 90–132; BP diastolic 53–100; BMI 27.5
--- NOTE | 2024-10-13 | PTCARENOTE ---
Patient hypotensive ~ 2100 - 250 cc NS bolus given per CVNP and Coreg held. Hospitalist MEDIA MARKETING MANAGER made aware as notified of pt's low UOP as well. Assessment of needs ongoing. Good response to IVF and improved UOP subsequently. Umm hess d/c'ed for goal
temps. See work list. VSS otherwise stable.
--- NOTE | 2024-10-13 04:00 | PTCARENOTE ---
VSS, patient awake throughout the night, offered medications for sleep, declined, assessment of needs ongoing.
[2024-10-13 04:43] LABS: Hematocrit 30.3 % (39.0-52.0); Hemoglobin 10.0 g/dL (13.0-18.0); Mean Corp Hgb Conc. 33.0 g/dL (33.0-37.0); Mean Corpuscular Volume 98.4 fL (80.0-94.0); Platelet Count 112 10^3/uL (130-400); Red Cell Dist. Width 14.0 % (11.5-14.5)
[2024-10-13 04:57] LABS: Blood Urea Nitrogen 26 mg/dl (9-20); Calcium 9.0 mg/dl (8.4-10.2); Carbon Dioxide 28 mmol/L (22-30); Chloride 102 mmol/L (98-107); Estimated Creatinine Clearance 55 ml/min; Glucose 122 mg/dl (70-99); Magnesium 2.4 mg/dl (1.6-2.3); Potassium 4.8 mmol/L (3.5-5.1); Sodium 136 mmol/L (135-145); eGFR > 60.00
[2024-10-13] MEDS: ANCEF 10 IV ×3 (06:22→22:22)
--- NOTE | 2024-10-13 09:00 | PTCARENOTE ---
Assumed patient care from nightshift RN. Patient OOB in chair. AOx3, no c/o pain at this time. 100% V paced on CM rate 70, murmur auscultated, pulses palpable aside from LDP present with Doppler; trace edema noted. On 1LNC, lungs dim in bilateral
bases, patient c/o feeling SOB, satting 97+% on 1L. No c/o nausea/vomiting, bowel sounds present but hypoactive, pt had bowel movement in bathroom. Atkinson catheter discontinued this morning , due to void by 1200. RCW Aquacel in place CDI no drainage;
B/L groin dressings in place CDI, soft, no oozing or hematomas noted. PIV x2; L brachial art line present; leveled, calibrated, and flushed.
[2024-10-13] MEDS: ALDACTONE 12.5 MG PO (09:29)
[2024-10-13] MEDS: COREG 6.25 MG PO (09:30)
[2024-10-13] MEDS: PROSCAR 5 MG PO (09:30)
[2024-10-13] MEDS: ZAROXOLYN 2.5 MG PO (09:30)
[2024-10-13] MEDS: FLOMAX 0.4 MG PO (09:30)
[2024-10-13] MEDS: PROTONIX 40 MG PO (09:30)
[2024-10-13] MEDS: CRESTOR 10 MG PO (09:30)
[2024-10-13] MEDS: ZOLOFT 25 MG PO (09:30)
--- NOTE | 2024-10-13 10:11 | W.PN.ID1 ---
Date of Service
Date of Service: October 13, 2024
Today's Communication
Repeat blood cx's.
Continue cefazolin.
Assessment / Plan
# MSSA bacteremia OSH (sensitive: oxacillin, tetra, t/sulfa, clinda)
# Fever resolved
# Presence of AICD/PPM
# Afib, CAD, ICM
- 10/11 Repeat blood cultures here + MSSA
- Repeat blood cx's x 2
- Outside DAVID neg vegetation
- 10/12 s/p AICD/PPM total extraction
Lead tip cx pending
Pocket cx pending
- Continue cefazolin 2g IV q8.
Plan to treat x 6 weeks from negative blood cultures.
# Conditions CORPORATE DEVELOPMENT INTERN
Atrial fibrillation
CAD status post CABG x 2
Ischemic cardiomyopathy status post Biotronik biventricular cardiac pacemaker (BIRD TRAPPER-P) last replaced 7 years ago at [place]
Aortic stenosis
LEONOR on CPAP
Bilateral CEA
Chief Complaint
-: Bacteremia
Subjective / Review of Systems
Feels better. No complaints. Eating breakfast.
Vital Signs / Physical Exam
Vital Signs
Vital Signs
Temp Pulse Resp BP Pulse Ox
97.7 F 69 16 121/53 96
10/13/24 09:15 10/13/24 09:29 10/13/24 07:00 10/13/24 09:15 10/13/24 09:15
Physical Exam
Constitutional: No Acute Distress and Comfortable
Cardiovascular: Regular Rate and S1/S2
Pulmonary: Clear and Non Labored
Gastrointestinal: Soft, Non Tender, Non Distended and Normal Bowel Sounds
Extremities: Negative Edema
Wound: Other (RCW dressing with dried blood)
Neurological: AO x 3
Objective Data
Lab Data
Lab Results
10/13/24 04:05
10/13/24 04:05
APTT Cancelled 10/12/24 10:20
Estimated Creat Clear 55 ml/min 10/13/24 04:05
Total Bilirubin 0.9 mg/dl (0.2-1.3) 10/12/24 03:23
AST 27 U/L (17-59) 10/12/24 03:23
ALT 21 U/L (0-50) 10/12/24 03:23
Alkaline Phosphatase 98 U/L (38-126) 10/12/24 03:23
Most recent labs reviewed.
Micro Results:
10/11/24 20:47 Blood Culture - Preliminary
Blood/Venous Staphylococcus aureus
Gram Stain - Preliminary
10/11/24 21:30 Blood Culture - Preliminary
Blood/Venous No Growth in 24 hours- Final report to follow
10/12/24 12:15 Wound Culture - Pending
Chest - Right Gram Stain - Preliminary
10/12/24 12:15 Anaerobic Culture - Pending
Chest - Right
10/12/24 12:15 Catheter Tip Culture - Pending
Pace Maker/Introd Port
10/11/24 18:48 MRSA Screen - Pending
Nose
Care Review
Plan reviewed with: Physician (Dr. Carina Gates)
--- NOTE | 2024-10-13 10:50 | W.PN.CD ---
Addendum entered and electronically signed by Pihllip Shea MD 10/13/24 12:11:
resuming eliquis
Original Note:
Today's Communication / Plan
-
start furosemide 80 iv bid
hold metolazone
continue aldactone
Impression / Plan
-
Primary cardiolog: Dr. Hayden Khanna at [facility]
MSSA Bacteremia - acute, treated with IV ABX per ID.
- s/p ppm explant
BiV PPM -
10/12/24:Successful extraction of the TAG AND LABEL CUTTER-P system, placement of temporary pacemaker and implantation of permanent leadless pacemaker
Echo 10/13/24: No effusion
Severe TR: 2/2 to RV Dilation and failure of leaflets to coapt
-continue aldactone
HFpEF;
-acute on chronic
-will start furosemide 80 IV BID with intensive monitoring
-will hold further metolazone and give prn
-cotninue aldactone.
-Will hold off on SGLT2i with infection, but could be considered in the future
-per last op note with Dr Khanna dry wt range 154-162 on 09/18/24.
-'I increase his torsemide to 60 mg a day and his Aldactone to 25 mg a day for 1 week. He will call me in 1 week with an update. I would generally aim to keep his weight between 154 162 pounds as opposed to the 160-168 range that we have been
aiming for of late. T Will continue these meds and add Zaroxolyn up to twice weekly as needed.'-Dr Khanna
CAD - stable w/o angina, continue medical therapy.
- s/p CABG x 2
HTN - stable on meds, continue.
Afib - permanent.
- rate controlled on Coreg, continue.
- Eliquis held for procedure, on arrival started on IV Heparin that was just turned off procedure.
LEONOR - stable on CPAP.
Subjective:
he is still sob, but otherwise feeling well
TTE 10/13/24:
SUMMARY
1. Normal left ventricular size and systolic function with moderate LVH. Ejection fraction 55 to 60%.
2. Severely dilated right ventricle with normal systolic function.
3. Severe tricuspid regurgitation as leaflets do not coapt. Pulmonary pressure may be underestimated due to severe regurgitation.
4. Mild to moderate aortic stenosis. Trace aortic regurgitation.
5. No pericardial effusion.
6. Mildly dilated ascending aorta.
7. Compared to the prior on 08/20/2024, pacer wire no longer seen in the right heart chambers.
Physical Exam
Vital Signs/Labs
Vital Signs
Temp Pulse Resp BP Pulse Ox
97.7 F 70 17 121/100 98
10/13/24 09:15 10/13/24 10:30 10/13/24 10:30 10/13/24 10:00 10/13/24 10:15
10/12/24 10/13/24 10/14/24
06:59 06:59 06:59
Actual Weight 151 lb 7.321 oz 170 lb 3.15 oz
10/13/24 04:05
10/13/24 04:05
APTT Cancelled 10/12/24 10:20
Magnesium 2.4 mg/dl (1.6-2.3) H 10/13/24 04:05
Physical Exam
Constitutional: No acute distress and Comfortable
Cardiovascular: Rhythm & rate is regular, Systolic murmur absent, Diastolic murmur absent and Other (vwave in jvp, sacral 2+ pitting edema.)
Respiratory: Respiratory effort normal, Lungs clear to auscul., Wheeze Absent and Crackles Absent
GI: Non tender
Neuro/Psych: AO x 3
Data Reviewed
-
Date of Service: October 13, 2024
Medical Decision Making: Review of Case with other Provider
EKG: Tracing Personally Visualized and interpreted (Vpaced)
--- NOTE | 2024-10-13 11:46 | W.PN.ANS.POP ---
Anesthesia Post Operative
- Anesthesia Post Op Note
Vital Signs Stable-See Nursing Note: Yes
Airway Patent: Yes
Adequate Pain Control: Yes
Change in Mental Status: No
Current Postoperative Nausea & Vomiting: No
Anesthesia Complications: No
General Anesthetic Recall: No
Unplanned Admission: No
Post Op Hydration Adequate: Yes
[2024-10-13] MEDS: LASIX 80 MG IV ×2 (12:47→17:03)
[2024-10-13] MEDS: ELIQUIS 5 MG PO ×2 (12:47→19:59)
--- NOTE | 2024-10-13 13:30 | PTCARENOTE ---
Patient remains OOB in chair, denies pain. Pt had bedside echo done. Critical result came back with gram + cocci in blood. Blood cultures drawn and sent to lab x1 set. Family bedside. Tolerating meals. V-paced 100%, vital signs stable. Lasix 80mg IV
given, pt had urgency related incontinence and voids in urinal.
--- NOTE | 2024-10-13 13:38 | W.PN.HOSP.TC ---
Today's Communication/Plan
-
see note
Assessment / Plan
Assessment / Plan
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
-Repeat blood culture reported to be clear at [facility]
-TTE and DAVID did not show any evidence of vegetation or endocarditis
-s/p pacemaker extraction and reimplantation on 10/10
-Repeat blood culture from 10/11 is growing Staphylococcus aureus, presumably MSSA as well. Follow-up on susceptibility
-6 weeks of antibiotic will be warranted from 2 negative blood culture date. ID help appreciated.
-Heparin drip has been changed to Eliquis
# Severe aortic stenosis
- Would likely need evaluation for TAVR after evaluation of pacemaker
#CAD status post CABG x 2 in 2018
Chronic HFpEF
Ischemic cardiomyopathy
-Continue spironolactone
-Patient started on IV Lasix 80 mg twice daily. Metolazone held.
-Patient normally on Coreg 6.25 twice daily, resumed
# History of ventricular tachycardia
Permanent atrial fibrillation
-Eliquis resumed.
Moderate to severe tricuspid regurgitation
Obstructive carotid artery disease status post left CEA
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
Hyperlipidemia - Continue statin
Obstructive sleep apnea - Continue CPAP at night
BPH - Continue finasteride, tamsulosin
GERD - Continue Protonix
Anxiety/depression - Continue sertraline
Full code
DVT prophylaxis�heparin drip
Total time spent : 54 mins
Anticipated Discharge: > 48 hours
Subjective/Interval History
-
Date of Service: October 13, 2024
denies of having any chest pain
have some sob
on o2 through NC
Objective Data
-
Labs:
Laboratory Results
10/13/24
04:05
WBC 6.7
Hgb 10.0 L
Hct 30.3 L
Plt Count 112 L
Sodium 136
Potassium 4.8
Chloride 102
Carbon Dioxide 28
BUN 26 H
Creatinine 0.9
Glucose 122 H
Calcium 9.0
Vital Signs:
Vital Signs
Temp Pulse Resp BP Pulse Ox
97.8 F 71 17 127/87 95
10/13/24 13:00 10/13/24 13:00 10/13/24 10:30 10/13/24 13:00 10/13/24 13:00
I&O
10/12/24 10/13/24 10/14/24
06:59 06:59 06:59
Intake Total 520 / 520 0 / 0
Output Total 880 / 880 0 / 0
Balance -360 / -360 0 / 0
Review of Systems
-
Respiratory: Reports Trouble Breathing
Cardiac: Reports No Symptoms
Abdomen/GI: Reports No Symptoms
Physical Exam
-
General: No Apparent Distress and Comfortable
HEENT: Oxygen (NC)
Respiratory: Rhonchi and Other (Right chest pacemaker scar - no tenderness/swelling)
Cardiac: Regular Rhythm and S1/S2; Negative Murmur or Rub
Musculoskeletal: No Edema
Neuro: Awake, Alert, Oriented, No Motor Deficits and Nonfocal/Grossly Intact
Psych: Calm
--- NOTE | 2024-10-13 16:53 | PTCARENOTE ---
Pt remains OOB in chair, denies pain. Pt had another bowel movement. Voiding frequently, some episodes of slight incontinence. No signs of hematoma development at surgical sites. 100% v-paced. Vital signs stable. 1LNC with O2 sats 97%. Eliquis
resumed. Another round of lasix due at 1700.
[2024-10-13 17:59] LABS: Potassium 4.6 mmol/L (3.5-5.1)
--- NOTE | 2024-10-13 20:00 | PTCARENOTE ---
Resumed care of the patient at 1900. Patient OOB to chair, at bedside. AOx3, no c/o pain at this time. 100% V paced on CM rate 70-73m frequent PVCs, murmur auscultated, pulses weakly palpable, trace LE pitting edema.1LNC, lungs dim at the
bases, frequent moist productive cough, states his breathing feels better, satting 97+%, pt's son brought in his home CPAP device, setup by RT. Abdomen distended, nontender, normoactive BS. voiding without difficulty clear, yellow urine into the
urinal; output measurement education provided to patient and his , verbally indicated understanding. RCW Aquacel in place CDI no drainage; B/L groin dressings in place CDI, soft, no oozing or hematomas noted B/L. PIV x2 INT. See nursing worklist
for additional intervention details.
[2024-10-13] MEDS: COREG PO (20:02)
[2024-10-14] VITALS (9 sets, daily range): BP systolic 95–133; BP diastolic 60–76; BMI 27.1
--- NOTE | 2024-10-14 00:20 | PTCARENOTE ---
VSS, patient sleeping between care, CPAP in place, no new needs expressed at this time.
--- NOTE | 2024-10-14 04:22 | PTCARENOTE ---
Patient sleeping between care, VSS. Labs drawn and sent, assessment of needs ongoing.
[2024-10-14 04:37] LABS: Hematocrit 31.1 % (39.0-52.0); Hemoglobin 10.2 g/dL (13.0-18.0); Mean Corp Hgb Conc. 32.8 g/dL (33.0-37.0); Mean Corpuscular Volume 98.7 fL (80.0-94.0); Platelet Count 113 10^3/uL (130-400); Red Cell Dist. Width 14.2 % (11.5-14.5)
[2024-10-14 04:55] LABS: Blood Urea Nitrogen 39 mg/dl (9-20); Calcium 9.2 mg/dl (8.4-10.2); Carbon Dioxide 33 mmol/L (22-30); Chloride 98 mmol/L (98-107); Estimated Creatinine Clearance 38 ml/min; Glucose 118 mg/dl (70-99); Potassium 4.0 mmol/L (3.5-5.1); Sodium 137 mmol/L (135-145); eGFR 54.17
[2024-10-14] MEDS: ANCEF 10 IV ×3 (05:55→22:10)
--- NOTE | 2024-10-14 08:45 | PTCARENOTE ---
Received patient for 7a-7p shift. Patient AAOx3, without complaints. VSS, Vpaced with occasional PVCs on orchard sprayer. Pt OOB to chair for breakfast. Tolerating po intake. Medications administered as tolerated. Left upper chest incision aquacell
dressing c/d/i. B/l groin incisions c/d/i. Instructed patient to call for assistance prior to ambulation. Patient verbalized understanding, call vann in reach. Will continue to monitor.
--- NOTE | 2024-10-14 08:56 | W.PN.ID1 ---
Date of Service
Date of Service: October 14, 2024
Today's Communication
Continue antibiotics
Assessment / Plan
# MSSA bacteremia OSH (sensitive: oxacillin, tetra, t/sulfa, clinda)
# Fever resolved
# Presence of AICD/PPM
# Afib, CAD, ICM
- 10/11 Repeat blood cultures here + MSSA
- Repeat blood cx's x 2
- Outside DAVID neg vegetation
- 10/12/24 s/p AICD/PPM total extraction
Lead tip cx pending
Pocket cx pending
- Continue cefazolin 2g IV q8.
- Creatinine slightly increased to 1.3 today. Will closely follow and adjust antibiotics as necessary.
- Plan to treat x 6 weeks from negative blood cultures.
# Conditions MARKETING OPERATIONS ASSISTANT
Atrial fibrillation
CAD status post CABG x 2
Ischemic cardiomyopathy status post Biotronik biventricular cardiac pacemaker (CULTURED [employer] MAKER-P) last replaced 7 years ago at [place]
Aortic stenosis
LEONOR on CPAP
Bilateral CEA
Chief Complaint
-: Bacteremia (Staph aureus)
Subjective / Review of Systems
Patient seen and examined. Reports minimal discomfort right anterior chest area at the site of prior lead extraction.
Review of Systems: No Fever and No Chills
Vital Signs / Physical Exam
Vital Signs
Vital Signs
Temp Pulse Resp BP Pulse Ox
97.4 F 72 21 95/60 90
10/14/24 04:25 10/14/24 04:00 10/14/24 04:00 10/14/24 04:00 10/14/24 04:25
Physical Exam
Constitutional: No Acute Distress
Cardiovascular: Regular Rate and S1/S2
Pulmonary: Clear and Non Labored
Gastrointestinal: Soft, Non Tender, Non Distended and Normal Bowel Sounds
Extremities: Negative Edema
Wound: Other (RCW dressing with dried blood)
Neurological: AO x 3
Objective Data
Lab Data
Lab Results
10/14/24 04:16
10/14/24 04:16
APTT Cancelled 10/12/24 10:20
Estimated Creat Clear 38 ml/min 10/14/24 04:16
Total Bilirubin 0.9 mg/dl (0.2-1.3) 10/12/24 03:23
AST 27 U/L (17-59) 10/12/24 03:23
ALT 21 U/L (0-50) 10/12/24 03:23
Alkaline Phosphatase 98 U/L (38-126) 10/12/24 03:23
Most recent labs reviewed.
Micro Results:
10/11/24 21:30 Blood Culture - Preliminary
Blood/Venous No Growth in 48 hours- Final report to follow
10/13/24 10:45 Blood Culture - Pending
Blood/Venous
10/12/24 12:15 Anaerobic Culture - Preliminary
Chest - Right Culture pending. Anaerobic cultures are examined after 3
days incubation. Additional information to follow.
10/12/24 12:15 Wound Culture - Preliminary
Chest - Right No growth
Gram Stain - Preliminary
10/12/24 12:15 Catheter Tip Culture - Preliminary
Pace Maker/Introd Port No Growth After 18-24 Hours
10/13/24 12:17 Blood Culture - Pending
Blood/Venous
10/11/24 18:48 MRSA Screen - Final
Nose No Methicillin Resistant Staphylococcus aureus isolated.
10/11/24 20:47 Blood Culture - Preliminary
Blood/Venous Staphylococcus aureus
Gram Stain - Preliminary
[2024-10-14] MEDS: COREG 6.25 MG PO (09:35)
[2024-10-14] MEDS: ZOLOFT 25 MG PO (09:35)
[2024-10-14] MEDS: ALDACTONE 12.5 MG PO (09:35)
[2024-10-14] MEDS: FLOMAX 0.4 MG PO (09:36)
[2024-10-14] MEDS: PROSCAR 5 MG PO (09:36)
[2024-10-14] MEDS: ELIQUIS 5 MG PO ×2 (09:36→20:28)
[2024-10-14] MEDS: PROTONIX 40 MG PO (09:36)
[2024-10-14] MEDS: CRESTOR 10 MG PO (09:36)
--- NOTE | 2024-10-14 10:43 | W.PN.CD ---
Today's Communication / Plan
-
lasix 80mg IV today x1
continue to monitor bp
Impression / Plan
-
Primary cardiolog: Dr. Hayden Khanna at [facility]
MSSA Bacteremia - acute, treated with IV ABX per ID.
- s/p ppm explant
BiV PPM -
10/12/24:Successful extraction of the SOURCE WATER PROTECTION SPECIALIST-P system, placement of temporary pacemaker and implantation of permanent leadless pacemaker
Echo 10/13/24: No effusion
Severe TR: 2/2 to RV Dilation and failure of leaflets to coapt
-continue aldactone
HFpEF;
-acute on chronic
-negative 2.5L with sbp softening. Volume exam improved but bronchospastic on exam
-decrease IV lasix to daily with intensive monitoring of his bp and labs.
-will hold further metolazone and give prn
-continue aldactone but at 1/2 dose
-Will hold off on SGLT2i with infection, but could be considered in the future
-per last op note with Dr Khanna dry wt range 154-162 on 09/18/24.
-'I increase his torsemide to 60 mg a day and his Aldactone to 25 mg a day for 1 week. He will call me in 1 week with an update. I would generally aim to keep his weight between 154 162 pounds as opposed to the 160-168 range that we have been
aiming for of late. T Will continue these meds and add Zaroxolyn up to twice weekly as needed.'-Dr Khanna
CAD - stable w/o angina, continue medical therapy.
- s/p CABG x 2
HTN - stable on meds, continue.
Afib - permanent.
- rate controlled on Coreg, continue.
- Eliquis held for procedure, on arrival started on IV Heparin that was just turned off procedure.
LEONOR - stable on CPAP.
Subjective:
he is still sob, but otherwise feeling well
TTE 10/13/24:
SUMMARY
1. Normal left ventricular size and systolic function with moderate LVH. Ejection fraction 55 to 60%.
2. Severely dilated right ventricle with normal systolic function.
3. Severe tricuspid regurgitation as leaflets do not coapt. Pulmonary pressure may be underestimated due to severe regurgitation.
4. Mild to moderate aortic stenosis. Trace aortic regurgitation.
5. No pericardial effusion.
6. Mildly dilated ascending aorta.
7. Compared to the prior on 08/20/2024, pacer wire no longer seen in the right heart chambers.
Physical Exam
Vital Signs/Labs
Vital Signs
Temp Pulse Resp BP Pulse Ox
97.7 F 73 19 99/63 97
10/14/24 08:00 10/14/24 10:00 10/14/24 10:00 10/14/24 09:35 10/14/24 10:39
10/13/24 10/14/24 10/15/24
06:59 06:59 06:59
Actual Weight 170 lb 3.15 oz 167 lb 12.348 oz
10/14/24 04:16
10/14/24 04:16
APTT Cancelled 10/12/24 10:20
Magnesium 2.4 mg/dl (1.6-2.3) H 10/13/24 04:05
Physical Exam
Constitutional: No acute distress
Cardiovascular: Rhythm & rate is regular, Pedal edema present (trace b/l ), JVD present (large v wave) and Systolic murmur present (2/6 hsm in all areas)
Respiratory: Respiratory effort normal, Lungs clear to auscul., Crackles Absent, Rhonchi Absent and Wheeze Present
Neuro/Psych: AO x 3
Data Reviewed
-
Date of Service: October 14, 2024
Medical Decision Making: Review of Case with other Provider (Dr Gates will reduce lasix)
[2024-10-14] MEDS: LASIX 80 MG IV (11:57)
--- NOTE | 2024-10-14 12:45 | W.PN.HOSP.TC ---
Today's Communication/Plan
-
slower diuretics
f/u weight/cr
Assessment / Plan
Assessment / Plan
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
-Repeat blood culture reported to be clear at [facility]
-TTE and DAVID did not show any evidence of vegetation or endocarditis
-s/p pacemaker extraction and reimplantation on 10/10
-Repeat blood culture from 10/11 is growing Staphylococcus aureus, presumably MSSA as well. Follow-up on susceptibility
-Blood cs from 10/13 is showing NTD
-6 weeks of antibiotic will be warranted from 2 negative blood culture date. ID help appreciated.
-Heparin drip has been changed to Eliquis
# Severe aortic stenosis
- Would likely need evaluation for TAVR after evaluation of pacemaker
#CAD status post CABG x 2 in 2018
Chronic HFpEF
Ischemic cardiomyopathy
-Continue spironolactone
-Patient normally on Coreg 6.25 twice daily, resumed
-Patient weight down 1 kg, creatinine jumped from 0.9 from 1.3. Discussed with cardiology and will decrease the Lasix to IV Lasix 80 mg daily
-Monitor weight and creatinine
-Some reported wheezing. Adding DuoNeb therapy. No reported history of COPD
# History of ventricular tachycardia
Permanent atrial fibrillation
-Eliquis resumed.
Moderate to severe tricuspid regurgitation
Obstructive carotid artery disease status post left CEA
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
Hyperlipidemia - Continue statin
Obstructive sleep apnea - Continue CPAP at night
BPH - Continue finasteride, tamsulosin
GERD - Continue Protonix
Anxiety/depression - Continue sertraline
Full code
DVT prophylaxis�Eliquis
Care plan discussed with cards.
Anticipated Discharge: > 48 hours
Subjective/Interval History
-
Date of Service: October 14, 2024
Shortness of breath subjectively better
No chest pain/dizziness/palpitation
Some muscle soreness at right shoulder pacemaker placement site
Objective Data
-
Labs:
Laboratory Results
10/14/24
04:16
WBC 8.1
Hgb 10.2 L
Hct 31.1 L
Plt Count 113 L
Sodium 137
Potassium 4.0
Chloride 98
Carbon Dioxide 33 H
BUN 39 H
Creatinine 1.3
Glucose 118 H
Calcium 9.2
Vital Signs:
Vital Signs
Temp Pulse Resp BP Pulse Ox
97.7 F 73 19 133/76 97
10/14/24 08:00 10/14/24 12:00 10/14/24 12:00 10/14/24 12:00 10/14/24 10:39
I&O
10/13/24 10/14/24 10/15/24
06:59 06:59 06:59
Intake Total 520 / 520 0 / 0
Output Total 880 / 880 2009 1000 / 1000
Balance -360 / -360 -2009 / -1000 / -1000
Review of Systems
-
Respiratory: Reports No Symptoms
Cardiac: Reports No Symptoms
Abdomen/GI: Reports No Symptoms
Physical Exam
-
General: No Apparent Distress and Comfortable
HEENT: Oxygen (NC)
Respiratory: Rhonchi and Other (Right chest pacemaker scar - no tenderness/swelling)
Cardiac: Regular Rhythm and S1/S2; Negative Murmur or Rub
Musculoskeletal: No Edema
Neuro: Awake, Alert, Oriented, No Motor Deficits and Nonfocal/Grossly Intact
Psych: Calm
[2024-10-14] MEDS: DUONEB 3 ML INH (13:37)
--- NOTE | 2024-10-14 17:12 | PTCARENOTE ---
Patient reassessed, VSS, 100% Vpaced on library monitor. 90-94% on room air, denies SOB. Medications administered as ordered. Patient tolerating po intake, voiding without issues. Pt denies pain at this time. Will continue to monitor
[2024-10-14] MEDS: COREG PO (20:27)
--- NOTE | 2024-10-14 20:30 | PTCARENOTE ---
Patient received resting in bed watching television. Patient A+A+Ox3. No neurological deficits noted. Patient with no c/o pain or discomfort. Room air. SpO2 91%. Mild LEZAMA. CPAP at HS. Patient with AICD. New Permanent Pacemaker - V-Pacing -
Heart rate 70. Blood pressure 122/66 (80). Patient refused evening dose of Coreg 6.25 mg PO. Patient with no c/o chest pain, pressure or discomfort. Abdomen soft, nontender. Normoactive bowel sounds. No BM. No c/o nausea. No vomiting.
Voiding. Afebrile. Right anterior chest wall with surgical dressing intact. Right groin and left groin dressings intact - No hematoma, bleeding or oozing noted - Positive circulation, sensation and mobility to bilateral lower extremities.
Positive, palpable pulses. Trace edema. Patient with no c/o back or flank pain. Assessment as documented.
[2024-10-15] VITALS (12 sets, daily range): BP systolic 103–125; BP diastolic 62–713; PULSE 70; O2SAT 94; BMI 26.6
--- NOTE | 2024-10-15 | PTCARENOTE ---
Patient sleeping without difficulty. CPAP HS. No further changes from previous assessment.
[2024-10-15 03:53] LABS: Hematocrit 30.5 % (39.0-52.0); Hemoglobin 10.0 g/dL (13.0-18.0); Mean Corp Hgb Conc. 32.8 g/dL (33.0-37.0); Mean Corpuscular Volume 99.3 fL (80.0-94.0); Platelet Count 110 10^3/uL (130-400); Red Cell Dist. Width 14.3 % (11.5-14.5)
--- NOTE | 2024-10-15 04:00 | PTCARENOTE ---
Patient resting in bed. Patient A+A+Ox3. No neurological deficits noted. Patient with no c/o pain or discomfort. AM lab work collected and sent. CPAP intact. SpO2 92%. V-Pacing. Heart rate 70. Blood pressure 103/62 (76). Patient voided
100 ml yellow urine. Patient back to sleep. Assessment/Interventions as documented.
[2024-10-15 04:17] LABS: Blood Urea Nitrogen 43 mg/dl (9-20); Calcium 9.7 mg/dl (8.4-10.2); Carbon Dioxide 34 mmol/L (22-30); Chloride 97 mmol/L (98-107); Estimated Creatinine Clearance 50 ml/min; Glucose 111 mg/dl (70-99); Potassium 3.7 mmol/L (3.5-5.1); Sodium 137 mmol/L (135-145); eGFR > 60.00
[2024-10-15] MEDS: ANCEF 10 IV ×3 (05:57→21:57)
--- NOTE | 2024-10-15 08:00 | PTCARENOTE ---
Handoff report received from nightshift RN. Pt OOB in chair at this time. AOx4, 100% V paced on monitor, 70s, SBP 120s, 1L NC satting 95%. Pt remains afebrile at this time and currently denies pain. +2 radial and +1 DP pulses. R upper chest dressing
CDI, L brachial dressing CDI, B/L groin site dressings soft and CDI, R side slightly ecchymotic. Breakfast ordered. Messaged Eleanor Gould PHOTOVOLTAIC POWER SYSTEMS ENGINEER, Pt K+ 3.7 this am, she ordered replacement. I/Os charted. All needs met at this time, call vann within
reach.
[2024-10-15] MEDS: PROTONIX 40 MG PO (08:23)
[2024-10-15] MEDS: CRESTOR 10 MG PO (08:23)
[2024-10-15] MEDS: ELIQUIS 5 MG PO ×2 (08:24→20:10)
[2024-10-15] MEDS: LASIX 80 MG IV (08:24)
[2024-10-15] MEDS: ALDACTONE 12.5 MG PO (08:24)
[2024-10-15] MEDS: PROSCAR 5 MG PO (08:24)
[2024-10-15] MEDS: ZOLOFT 25 MG PO (08:24)
[2024-10-15] MEDS: COREG 6.25 MG PO ×2 (08:24→20:10)
[2024-10-15] MEDS: FLOMAX 0.4 MG PO (08:24)
[2024-10-15 08:33] LABS: ALT (SGPT) 11 U/L (0-50); AST (SGOT) 27 U/L (17-59); Albumin 3.6 g/dl (3.5-5.0); Alkaline Phosphatase 104 U/L (38-126); Total Protein 6.9 g/dl (6.3-8.2)
[2024-10-15] MEDS: KCL 20 MEQ PO (09:18)
--- NOTE | 2024-10-15 09:21 | W.PN.CD ---
Today's Communication / Plan
-
- Clinically doing well.
- Stable from cardiac stand point.
- Antibiotics as per ID
- can be discharged from cardiac stand point.
- Lasix 80 mg QD and Metolazone 2.5 mg QD.
- Incision check at [facility] in 1-2 weeks
- Follow up with Dr. Khanna in 1-2 months.
Impression / Plan
-
Primary cardiolog: Dr. Hayden Khanna at [facility]
MSSA Bacteremia - acute, treated with IV ABX per ID.
- s/p ppm explant
- Blood Cx: - +ve MSSA at [facility]; 10/11/24 - +ve MSSA at ; extraction 10/12; No growth since then.
- Antibiotics as per ID
BiV PPM -
10/12/24:Successful extraction of the MANOMETER TECHNICIAN-P system, placement of temporary pacemaker and implantation of permanent leadless pacemaker
Echo 10/13/24: No effusion
Severe TR: 2/2 to RV Dilation and failure of leaflets to coapt
-continue aldactone
HFpEF;
-acute on chronic
- Close to baseline
- No need to get to the dry weight paxton with ongoing infection
- Cr is improved and at baseline.
- OK to discharge at 80 mg PO QD and Metolazone 2.5 mg QD.
-continue aldactone but at 1/2 dose
-Will hold off on SGLT2i with infection, but could be considered in the future
-per last op note with Dr Khanna dry wt range 154-162 on 09/18/24.
CAD - stable w/o angina, continue medical therapy.
- s/p CABG x 2 (2018)
HTN - stable on meds, continue.
Afib - permanent.
- rate controlled on Coreg, continue.
- Eliquis held for procedure, on arrival started on IV Heparin that was just turned off procedure.
LEONOR - stable on CPAP.
Subjective:
he is feeling well. ambulating. OOB.
TTE 10/13/24:
SUMMARY
1. Normal left ventricular size and systolic function with moderate LVH. Ejection fraction 55 to 60%.
2. Severely dilated right ventricle with normal systolic function.
3. Severe tricuspid regurgitation as leaflets do not coapt. Pulmonary pressure may be underestimated due to severe regurgitation.
4. Mild to moderate aortic stenosis. Trace aortic regurgitation.
5. No pericardial effusion.
6. Mildly dilated ascending aorta.
7. Compared to the prior on 08/20/2024, pacer wire no longer seen in the right heart chambers.
Physical Exam
Vital Signs/Labs
Vital Signs
Temp Pulse Resp BP Pulse Ox
97.5 F 71 18 125/74 92
10/15/24 08:00 10/15/24 08:24 10/15/24 08:00 10/15/24 08:24 10/15/24 03:40
10/14/24 10/15/24 10/16/24
06:59 06:59 06:59
Actual Weight 76.1 kg 74.6 kg
10/15/24 03:42
10/15/24 03:42
APTT Cancelled 10/12/24 10:20
Magnesium 2.4 mg/dl (1.6-2.3) H 10/13/24 04:05
Physical Exam
Constitutional: No acute distress and Comfortable
EENT: Anicteric and Moist mucous membranes
Cardiovascular: Rhythm & rate is regular, Pedal edema is absent and JVD pressure is normal
Respiratory: Respiratory effort normal, Lungs clear to auscul. and Wheeze Absent
GI: Soft, Distention absent, Non tender and Normal bowel sounds
Neuro/Psych: Alert, Oriented and AO x 3
Other: Skin, Cath Site and Cardiac Device Site
Data Reviewed
-
Date of Service: October 15, 2024
Medical Decision Making: Reviewed Test Results, Test Interpretation and Review of Case with other Provider
EKG: Tracing Personally Visualized and interpreted
Echo: Report Reviewed by me
Medical Tests (PFT, Pathology etc): Discussed with Patient
Labs: Labs Reviewed by me
Old Records: Reviewed
Critical Care Time (in minutes): 32
--- NOTE | 2024-10-15 11:01 | W.PN.ID1 ---
Date of Service
Date of Service: October 15, 2024
Today's Communication
See below.
Assessment / Plan
# MSSA bacteremia OSH (sensitive: oxacillin, tetra, t/sulfa, clinda)
# Fever resolved
# Presence of AICD/PPM -> total extraction 10/12
# Afib, CAD, ICM
- 10/11 Repeat blood cultures (1 0f 2 sets) + MSSA
- 10/13 blood cx's x 2, neg x 24h
- Outside DAVID neg vegetation
- 10/12/24 s/p AICD/PPM total extraction and implant of permanent leadless PPM
Lead tip cx NGTD
Pocket cx NGTD
- Continue cefazolin 2g IV q8 x 6 weeks through 11/23/24.
Infusion sheet submitted to lining caser.
- Place PICC when repeat bcx's remain neg x 48 to 72h.
# Conditions BROKER ASSOCIATE
Atrial fibrillation
CAD status post CABG x 2
Ischemic cardiomyopathy status post Biotronik biventricular cardiac pacemaker (MANAGER ENVIRONMENTAL-P) last replaced 7 years ago at [place]
Aortic stenosis
LEONOR on CPAP
Bilateral CEA
Chief Complaint
-: Bacteremia (Staph aureus)
Subjective / Review of Systems
Feels well.
Vital Signs / Physical Exam
Vital Signs
Vital Signs
Temp Pulse Resp BP Pulse Ox
97.5 F 71 18 125/74 92
10/15/24 08:00 10/15/24 08:24 10/15/24 08:00 10/15/24 08:24 10/15/24 03:40
Physical Exam
Constitutional: No Acute Distress and Comfortable
Cardiovascular: Regular Rate and S1/S2
Pulmonary: Clear
Gastrointestinal: Soft, Non Tender, Non Distended and Normal Bowel Sounds
Extremities: Negative Edema
Wound: Other (RCW dressing dry)
Neurological: AO x 3
Objective Data
Lab Data
Lab Results
10/15/24 03:42
10/15/24 03:42
APTT Cancelled 10/12/24 10:20
Estimated Creat Clear 50 ml/min 10/15/24 03:42
Total Bilirubin 0.6 mg/dl (0.2-1.3) 10/15/24 03:42
AST 27 U/L (17-59) 10/15/24 03:42
ALT 11 U/L (0-50) 10/15/24 03:42
Alkaline Phosphatase 104 U/L (38-126) 10/15/24 03:42
Most recent labs reviewed.
Micro Results:
10/12/24 12:15 Catheter Tip Culture - Final
Pace Maker/Introd Port No Growth After 72 Hours
10/12/24 12:15 Wound Culture - Preliminary
Chest - Right No growth
Gram Stain - Preliminary
10/11/24 20:47 Blood Culture - Preliminary
Blood/Venous S aureus-Methicillin Sensitive
Gram Stain - Preliminary
10/11/24 21:30 Blood Culture - Preliminary
Blood/Venous No Growth in 72 hours- Final report to follow
10/13/24 10:45 Blood Culture - Preliminary
Blood/Venous No Growth in 24 hours- Final report to follow
10/13/24 12:17 Blood Culture - Preliminary
Blood/Venous No Growth in 24 hours- Final report to follow
10/12/24 12:15 Anaerobic Culture - Preliminary
Chest - Right Culture pending. Anaerobic cultures are examined after 3
days incubation. Additional information to follow.
10/11/24 18:48 MRSA Screen - Final
Nose No Methicillin Resistant Staphylococcus aureus isolated.
--- NOTE | 2024-10-15 11:35 | W.CARD.DEVCH ---
Cardiac Device Check
-
Device: Pacemaker
Mannequin Mold Maker: Medtronic
The patient's leadless pacemaker (Micra) device was interrogated with assistance of the device housing management representative followed by a complete physician review. The device had normal function. No abnormalities seen.
--- NOTE | 2024-10-15 12:00 | PTCARENOTE ---
Patient OOB in chair at this time. I/Os charted. VSS. Patient denies pain at this time. Groin sites remain soft and CDI, R upper chest dressing CDI. Pt Aox4, V paced on tele with occasional PVCs, SBP 110s, 96% 1L NC. All needs met at this time, call
vann within reach.
--- NOTE | 2024-10-15 13:49 | PTCARENOTE ---
At 1323, patient yelled out in room. Patient stated it felt like he 'got shot' in his chest. From interrogating the bowling alley refinisher, it does appear like the patient may have been shocked by his ICD. Dr Vicente made aware. Pacemaker interrogated and upon
review patient was inappropriately shocked twice by his ICD. ICD turned off at this time. Dr. Vicente made aware of pt hx of VT, Dr Vicente is aware. All needs met at this time, all questions answered, call vann within reach.
--- NOTE | 2024-10-15 14:18 | W.PN.HOSP.TC ---
Today's Communication/Plan
-
Monitor vital signs see plan
PT evaluation
Continue to follow cultures per infectious disease, continue to monitor
Picc line when okay with ID
Continue with Lasix
Hopeful discharge tomorrow if okay with consultants
Assessment / Plan
Assessment / Plan
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
-Repeat blood culture reported to be clear at [facility]
-TTE and DAVID did not show any evidence of vegetation or endocarditis
-s/p pacemaker extraction and reimplantation on 10/10
-Repeat blood culture from 10/11 is growing Staphylococcus aureus, MSSA
-Blood cs from 10/13 is showing NTD
-6 weeks of antibiotic will be warranted from 2 negative blood culture date. ID help appreciated. PICC line per ID after 48 to 72 hours negative blood culture
-Heparin drip has been changed to Eliquis
# Severe aortic stenosis
- Would likely need evaluation for TAVR after evaluation of pacemaker. Defer to cardiology
#CAD status post CABG x 2 in 2018
Chronic HFpEF
Ischemic cardiomyopathy
-Continue spironolactone
-Patient normally on Coreg 6.25 twice daily, resumed
- Per cardiology, change IV Lasix to 80 mg p.o. daily. Metolazone 2.5 mg p.o. daily
-Monitor weight and creatinine
-Some reported wheezing. Adding DuoNeb therapy. No reported history of COPD
# History of ventricular tachycardia
Permanent atrial fibrillation
-Eliquis resumed.
Moderate to severe tricuspid regurgitation
Obstructive carotid artery disease status post left CEA
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
Hyperlipidemia - Continue statin
Obstructive sleep apnea - Continue CPAP at night
BPH - Continue finasteride, tamsulosin
GERD - Continue Protonix
Anxiety/depression - Continue sertraline
Full code
DVT prophylaxis�Eliquis
General: No Apparent Distress and Comfortable
HEENT: Anicteric, pink conjunctiva
Respiratory: Rhonchi and Other (Right chest pacemaker scar - no tenderness/swelling)
Cardiac: Regular Rhythm and S1/S2; Negative Murmur or Rub
Musculoskeletal: No Edema
Neuro: Awake, Alert, Oriented, No Motor Deficits and Nonfocal/Grossly Intact
Psych: Calm
I spent a total of 52 minutes with the patient or on the floor. More than 50% of this time involved counseling and coordination of care.
Anticipated Discharge: Within 24 hours
Subjective/Interval History
-
Date of Service: October 15, 2024
Denies pain
Objective Data
-
Labs:
Laboratory Results
10/15/24
03:42
WBC 7.8
Hgb 10.0 L
Hct 30.5 L
Plt Count 110 L
Sodium 137
Potassium 3.7
Chloride 97 L
Carbon Dioxide 34 H
BUN 43 H
Creatinine 1.0
Glucose 111 H
Calcium 9.7
Total Bilirubin 0.6
AST 27
ALT 11
Alkaline Phosphatase 104
Vital Signs:
Vital Signs
Temp Pulse Resp BP Pulse Ox
97.5 F 71 18 115/64 92
10/15/24 12:19 10/15/24 12:19 10/15/24 12:19 10/15/24 12:19 10/15/24 03:40
I&O
10/14/24 10/15/24 10/16/24
06:59 06:59 06:59
Intake Total 0 / 0 480 / 480
Output Total 2009 3200 / 3200 1550 / 1550
Balance -2009 -2719 / -2719 -1550 / -1550
--- NOTE | 2024-10-15 15:57 | CM ---
Reviewed chart. Met with MrRosa and Mrs. Newton to review discharge plans. Reviewed recommendations for SNF/Rehab. Reviewed choices for SNF. [facility]. Sent the referrals to check on
bed availability. Will need to pre-cert for SNF/Rehab. Also received telephone call from [facility] Liaison who states his co-pay for Home Infusion would be $12.70 a week. Wipll need PICC line for SNF and home infusion. Meidcal work-up in
progress. The discharge plan is to go to SNF/Rehab. when bed available, approved by insurance and when medically stable.
--- NOTE | 2024-10-15 16:00 | PTCARENOTE ---
Patient OOB in chair. VSS at this time. Pt denies pain. Ax1 with walker to bathroom. I/Os charted. Pt worked with PT today, tolerated. Pt recommending rehab. Patient has audible expiratory wheezes and course crackles noted in RML/RLL and LLL, Dr.
Jules made aware, no new orders at this time. Instruction provided on IS to patient and IS encouraged, patient voiced understanding. family at bedside. All needs met at this time, call vann within reach.
--- NOTE | 2024-10-15 19:19 | PTCARENOTE ---
Patient OOB in chair. VSS at this time, denies pain. All needs met at this time, call vann within reach. Handoff report given to nightshift RN.
--- NOTE | 2024-10-15 20:14 | PTCARENOTE ---
VS captured for previous shift.
received pt from previous rn. pt sitting in chair at time of assessment. pt AAOx4, no c/o pain at this time. 100% v paced per tele monitor HR 70. + pulses. VSS, pox 97% on 1L NC, lungs diminished at bases, audible wheeze noted. CPAP HS. +bs, voiding
clear yellow urine in urinal. RCW Aquacel in place CDI no drainage; B/L groin dressings in place CDI, soft, no oozing or hematomas noted. PIV x2 intact. plan of care discussed, questions encouraged, call vann within reach.
[2024-10-16] VITALS (7 sets, daily range): BP systolic 109–121; BP diastolic 62–70; BMI 26.4
--- NOTE | 2024-10-16 00:36 | PTCARENOTE ---
pt resting comfortably in bed. VSS, 100% v paced per tele monitor. assessment unchanged
--- NOTE | 2024-10-16 03:55 | PTCARENOTE ---
AM labs sent, VSS, assessment remains unchanged
[2024-10-16 04:19] LABS: Hematocrit 31.0 % (39.0-52.0); Hemoglobin 10.2 g/dL (13.0-18.0); Mean Corp Hgb Conc. 32.9 g/dL (33.0-37.0); Mean Corpuscular Volume 99.4 fL (80.0-94.0); Nucleated Red Blood Cells % 0 % (-); Platelet Count 119 10^3/uL (130-400); Red Cell Dist. Width 14.3 % (11.5-14.5)
[2024-10-16 04:37] LABS: ALT (SGPT) < 10 U/L (0-50); AST (SGOT) 26 U/L (17-59); Albumin 3.5 g/dl (3.5-5.0); Alkaline Phosphatase 94 U/L (38-126); Blood Urea Nitrogen 38 mg/dl (9-20); Calcium 9.1 mg/dl (8.4-10.2); Carbon Dioxide 36 mmol/L (22-30); Chloride 95 mmol/L (98-107); Estimated Creatinine Clearance 41 ml/min; Glucose 111 mg/dl (70-99); Potassium 4.1 mmol/L (3.5-5.1); Sodium 137 mmol/L (135-145); Total Protein 6.8 g/dl (6.3-8.2); eGFR 59.63
[2024-10-16 05:30] LABS: Magnesium 2.0 mg/dl (1.6-2.3)
[2024-10-16] MEDS: ANCEF 10 IV ×3 (06:16→22:04)
[2024-10-16] MEDS: ELIQUIS 5 MG PO ×2 (08:09→19:34)
[2024-10-16] MEDS: ZAROXOLYN 2.5 MG PO (08:09)
[2024-10-16] MEDS: TYLENOL 650 MG PO (08:09)
[2024-10-16] MEDS: FLOMAX 0.4 MG PO (08:09)
[2024-10-16] MEDS: PROSCAR 5 MG PO (08:09)
[2024-10-16] MEDS: LASIX 80 MG PO (08:09)
[2024-10-16] MEDS: COREG 6.25 MG PO ×2 (08:09→19:34)
[2024-10-16] MEDS: ZOLOFT 25 MG PO (08:09)
[2024-10-16] MEDS: CRESTOR 10 MG PO (08:09)
[2024-10-16] MEDS: PROTONIX 40 MG PO (08:09)
[2024-10-16] MEDS: ALDACTONE 12.5 MG PO (08:09)
--- NOTE | 2024-10-16 09:23 | W.PN.CD ---
Today's Communication / Plan
-
- Lifevest at the time of discharge for 3 months
- Plan for ICD placement after infection is cleared.
Impression / Plan
-
Primary cardiolog: Dr. Hayden Khanna at [facility]
MSSA Bacteremia - acute, treated with IV ABX per ID.
- s/p ppm explant
- Blood Cx: - +ve MSSA at [facility]; 10/11/24 - +ve MSSA at ; extraction 10/12; No growth since then.
- Antibiotics as per ID
BiV PPM -
10/12/24:Successful extraction of the OUTSOLE CUTTER MACHINE-P system, placement of temporary pacemaker and implantation of permanent leadless pacemaker
Echo 10/13/24: No effusion
Severe TR: 2/2 to RV Dilation and failure of leaflets to coapt
-continue aldactone
VT
- s/p Sub Q ICD - [employer]
- Poor R wave sensing. The programming was done to avoid T wave oversensing. However, pt received two shocks on 10/15/24 due to noise sensed as VF
- ICD is turned off at this time
- Pt is at risk of VT and SCD and is not protected to due poor sensing of the R wave by sub Q ICD
- Plan for lifevest for 1-3 months while on antibiotics and recovering from sepsis.
- Plan for transvenous ICD (Left bundle pacing ICD) for this pacemaker dependent patient and possible extraction of the Micra in 1-3 months.
HFpEF;
-acute on chronic
- Close to baseline
- No need to get to the dry weight paxton with ongoing infection
- Cr is improved and at baseline.
- Continue IV lasix for now,
- Plan to discharge at Lasix 80 mg PO QD and Metolazone 2.5 mg QD.
-continue aldactone but at 1/2 dose
-Will hold off on SGLT2i with infection, but could be considered in the future
-per last op note with Dr Lax dry wt range 154-162 on 09/18/24.
CAD - stable w/o angina, continue medical therapy.
- s/p CABG x 2 (2018)
HTN - stable on meds, continue.
Afib - permanent.
- rate controlled on Coreg, continue.
- Eliquis held for procedure, on arrival started on IV Heparin that was just turned off procedure.
LEONOR - stable on CPAP.
Subjective:
he is feeling well. ambulating. OOB. Out of ICU to IVU now. Had ICD shocks x 2 yesterday.
TTE 10/13/24:
SUMMARY
1. Normal left ventricular size and systolic function with moderate LVH. Ejection fraction 55 to 60%.
2. Severely dilated right ventricle with normal systolic function.
3. Severe tricuspid regurgitation as leaflets do not coapt. Pulmonary pressure may be underestimated due to severe regurgitation.
4. Mild to moderate aortic stenosis. Trace aortic regurgitation.
5. No pericardial effusion.
6. Mildly dilated ascending aorta.
7. Compared to the prior on 08/20/2024, pacer wire no longer seen in the right heart chambers.
Physical Exam
Vital Signs/Labs
Vital Signs
Temp Pulse Resp BP Pulse Ox
97.5 F 75 20 118/70 94
10/16/24 08:03 10/16/24 07:49 10/16/24 07:53 10/16/24 07:49 10/16/24 07:53
10/15/24 10/16/24 10/17/24
06:59 06:59 06:59
Actual Weight 74.6 kg 74.1 kg
10/16/24 03:51
10/16/24 03:51
APTT Cancelled 10/12/24 10:20
Magnesium 2.0 mg/dl (1.6-2.3) 10/16/24 03:51
Physical Exam
Constitutional: No acute distress and Comfortable
EENT: Anicteric and Moist mucous membranes
Cardiovascular: Rhythm & rate is regular, Pedal edema is absent and JVD pressure is normal
Respiratory: Respiratory effort normal and Lungs clear to auscul.
GI: Soft, Non tender and Normal bowel sounds
Neuro/Psych: Alert, Oriented and AO x 3
Other: Skin, Cath Site and Cardiac Device Site
Data Reviewed
-
Date of Service: October 16, 2024
Medical Decision Making: Reviewed Test Results, Test Interpretation and Review of Case with other Provider
EKG: Tracing Personally Visualized and interpreted
Echo: Report Reviewed by me
Medical Tests (PFT, Pathology etc): Discussed with Physician and Discussed with Patient
Labs: Labs Reviewed by me
Old Records: Reviewed
--- NOTE | 2024-10-16 09:23 | W.CARD.DEVCH ---
Cardiac Device Check
-
Device: Implanted Cardioverter-Defibrillator
Clinical Asst: [employer]
The patient's device was interrogated with assistance of the device printing sales representative followed by a complete physician review.
Patient had received two shocks from the SubQ ICD which were inappropriate due to noise. The R wave sensing is quite poor and is not adequately function. The ICD was turned off to avoid any further shocks.
--- NOTE | 2024-10-16 10:15 | W.PN.ID1 ---
Date of Service
Date of Service: October 16, 2024
Today's Communication
Ordered PICC.
Assessment / Plan
# MSSA bacteremia OSH (sensitive: oxacillin, tetra, t/sulfa, clinda)
# Fever resolved
# Presence of AICD/PPM -> total extraction 10/12
# Afib, CAD, ICM
- 10/11 Repeat blood cultures (1 0f 2 sets) + MSSA
- 10/13 blood cx's x 2, neg x 24h
- Outside DAVID neg vegetation
- 10/12/24 s/p AICD/PPM total extraction and implant of permanent leadless PPM
Lead tip cx NGTD
Pocket cx NGTD
- Ordered PICC placement.
- Continue cefazolin 2g IV q8 x 6 weeks through 11/23/24.
- Follow weekly CBC, CMP
- Infusion sheet submitted to clinical case manager.
# Conditions MESS ATTENDANT CREW
Atrial fibrillation
CAD status post CABG x 2
Ischemic cardiomyopathy status post Biotronik biventricular cardiac pacemaker (ANALYTICS SENIOR MANAGER-P) last replaced 7 years ago at [place]
Aortic stenosis
LEONOR on CPAP
Bilateral CEA
Chief Complaint
-: Bacteremia (Staph aureus)
Subjective / Review of Systems
Feels well.
Vital Signs / Physical Exam
Vital Signs
Vital Signs
Temp Pulse Resp BP Pulse Ox
97.5 F 75 20 118/70 94
10/16/24 08:03 10/16/24 07:49 10/16/24 07:53 10/16/24 07:49 10/16/24 07:53
Physical Exam
Constitutional: No Acute Distress and Comfortable
Cardiovascular: Regular Rate and S1/S2
Pulmonary: Clear
Gastrointestinal: Soft, Non Tender and Non Distended
Extremities: Negative Edema
Neurological: AO x 3
Objective Data
Lab Data
Lab Results
10/16/24 03:51
10/16/24 03:51
APTT Cancelled 10/12/24 10:20
Estimated Creat Clear 41 ml/min 10/16/24 03:51
Total Bilirubin 0.6 mg/dl (0.2-1.3) 10/16/24 03:51
AST 26 U/L (17-59) 10/16/24 03:51
ALT < 10 U/L (0-50) 10/16/24 03:51
Alkaline Phosphatase 94 U/L (38-126) 10/16/24 03:51
Most recent labs reviewed.
Micro Results:
10/11/24 21:30 Blood Culture - Preliminary
Blood/Venous No Growth in 4 days- Final report to follow
10/13/24 10:45 Blood Culture - Preliminary
Blood/Venous No Growth in 48 hours- Final report to follow
10/13/24 12:17 Blood Culture - Preliminary
Blood/Venous No Growth in 48 hours- Final report to follow
10/12/24 12:15 Anaerobic Culture - Preliminary
Chest - Right NO ANAEROBES ISOLATED
10/12/24 12:15 Catheter Tip Culture - Final
Pace Maker/Introd Port No Growth After 72 Hours
10/12/24 12:15 Wound Culture - Preliminary
Chest - Right No growth
Gram Stain - Preliminary
10/11/24 20:47 Blood Culture - Preliminary
Blood/Venous S aureus-Methicillin Sensitive
Gram Stain - Preliminary
10/11/24 18:48 MRSA Screen - Final
Nose No Methicillin Resistant Staphylococcus aureus isolated.
--- NOTE | 2024-10-16 12:50 | W.PN.UPDATE ---
Update Note
Progress Note Update
IR consulted for PICC line placement. Due to schedule constraints plan to do tomorrow
--- NOTE | 2024-10-16 13:42 | VATNOTE ---
VAT: Picc order in place. Attempted to place the picc in right arm. Able to cannulate the basilic vein and was able to advance the picc but unable to flush and obtain blood return. Redirected x2. IR consulted for picc placement for 10/17.
--- NOTE | 2024-10-16 14:13 | W.PN.HOSP.TC ---
Today's Communication/Plan
-
Monitor vital signs see plan
Continue with antibiotic
PICC line
LifeVest at time of discharge
Assessment / Plan
Assessment / Plan
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
-Repeat blood culture reported to be clear at [facility]
-TTE and DAVID did not show any evidence of vegetation or endocarditis
-s/p pacemaker extraction and reimplantation on 10/10
-Repeat blood culture from 10/11 is growing Staphylococcus aureus, MSSA
-Blood cs from 10/13 is showing NTD
-6 weeks of antibiotic will be warranted from 2 negative blood culture date. ID help appreciated. PICC line per ID after 48 to 72 hours negative blood culture
-Heparin drip has been changed to Eliquis
# Severe aortic stenosis
- Would likely need evaluation for TAVR after evaluation of pacemaker. Defer to cardiology
#CAD status post CABG x 2 in 2018
Chronic HFpEF
Ischemic cardiomyopathy
-Continue spironolactone
-Patient normally on Coreg 6.25 twice daily, resumed
- Per cardiology, change IV Lasix to 80 mg p.o. daily. Metolazone 2.5 mg p.o. daily
-Monitor weight and creatinine
-Some reported wheezing. Adding DuoNeb therapy. No reported history of COPD
Discussed with cardiology, need vest prior to dc
# History of ventricular tachycardia
Permanent atrial fibrillation
-Eliquis resumed.
Moderate to severe tricuspid regurgitation
Obstructive carotid artery disease status post left CEA
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
Hyperlipidemia - Continue statin
Obstructive sleep apnea - Continue CPAP at night
BPH - Continue finasteride, tamsulosin
GERD - Continue Protonix
Anxiety/depression - Continue sertraline
Full code
DVT prophylaxis�Eliquis
General: No Apparent Distress and Comfortable
HEENT: Anicteric, pink conjunctiva
Respiratory: Rhonchi and Other (Right chest pacemaker scar - no tenderness/swelling)
Cardiac: Regular Rhythm and S1/S2; Negative Murmur or Rub
Musculoskeletal: No Edema
Neuro: Awake, Alert, Oriented, No Motor Deficits and Nonfocal/Grossly Intact
Psych: Calm
Anticipated Discharge: Within 24 hours
Subjective/Interval History
-
Date of Service: October 16, 2024
Denies pain
Objective Data
-
Labs:
Laboratory Results
10/16/24
03:51
WBC 8.6
Hgb 10.2 L
Hct 31.0 L
Plt Count 119 L
Sodium 137
Potassium 4.1
Chloride 95 L
Carbon Dioxide 36 H
BUN 38 H
Creatinine 1.2
Glucose 111 H
Calcium 9.1
Total Bilirubin 0.6
AST 26
ALT < 10
Alkaline Phosphatase 94
Vital Signs:
Vital Signs
Temp Pulse Resp BP Pulse Ox
97.6 F 70 18 112/68 93
10/16/24 12:38 10/16/24 12:41 10/16/24 12:38 10/16/24 12:41 10/16/24 12:38
I&O
10/15/24 10/16/24 10/17/24
06:59 06:59 06:59
Intake Total 480 / 480
Output Total 3200 / 3200 2350 / 2350 300 / 300
Balance -2720 / -2720 -2350 / -2350 -300 / -300
--- NOTE | 2024-10-16 14:58 | CM ---
Addendum entered by Marla May RN 10/16/24 15:04:
Referral sent for Lifevest to [facility]. Lifevest approved. [facility] [employer] sales representative to orient patient to the Lifevest at 4pm
Original Note:
Chart reviewed. Patient is independent of ADLS, lives with his in a [address], [facility], ambulates with a SPC and also has a RW. PT evaluation recommending SNF. Patient will need a lifevest at discharge. [facility] and [facility] do not take Lifevest. [facility] accepted. Plan is for the patient to go to [facility] when medically stable CM to follow
--- NOTE | 2024-10-16 15:23 | PN.CDI ---
CDI
- -
CDI:
Physician Documentation Request
Admit Date: 10/11/24 18:21
Dear Doctor Eliu
Hospitalist H&P 'chronic HFpEF was gently diuresed at [facility], hold further diuresis for now'
Progress notes from 10/12-10/16 'chronic HFpEF.
10/13 cardiology note states 'HFpEF; acute on chronic will start furosemide 80 IV BIS with intensive monitoring'
10/14- cardio notes continue to refer to the heart failure as acute on chronic.
Please indicate in your progress notes if you are in agreement that the above diagnosis is valid for this patient:
____ - Acute on chronic HFpEF is a valid diagnosis (Please include it in your progress notes)
____ - Acute on chronic HFpEF is not a valid diagnosis for this patient- Chronic only
____ - Other
Use of terms such as suspected, likely, concern for, or probable are acceptable for a diagnosis that is being evaluated, monitored or treated as if it exists and can be coded in the inpatient setting, when documented at the time of discharge.
Thank you,
Nazia Thomas RN, BSN
CDI Specialist
tiger text
Please use your independent medical judgment in providing your response.
--- NOTE | 2024-10-16 23:08 | PTCARENOTE ---
Pt. V-paced in the 70's on the monitor. Right chest wall dressing CDI, no hematoma, CMS intact. B/L groin dressing also intact, assessment WNL. Pt. dines pain. Pt. between OOB and chair with assist x 1 & RW. Voiding clear yellow urine without
difficulty. Currently resting quietly.
[2024-10-17] VITALS (7 sets, daily range): BP systolic 104–115; BP diastolic 55–71; BMI 26.6
[2024-10-17 03:12] LABS: Hematocrit 28.4 % (39.0-52.0); Hemoglobin 9.5 g/dL (13.0-18.0); Mean Corp Hgb Conc. 33.5 g/dL (33.0-37.0); Mean Corpuscular Volume 96.9 fL (80.0-94.0); Nucleated Red Blood Cells % 0 % (-); Platelet Count 128 10^3/uL (130-400); Red Cell Dist. Width 14.5 % (11.5-14.5)
[2024-10-17 03:53] LABS: ALT (SGPT) < 10 U/L (0-50); AST (SGOT) 23 U/L (17-59); Albumin 3.4 g/dl (3.5-5.0); Alkaline Phosphatase 88 U/L (38-126); Blood Urea Nitrogen 41 mg/dl (9-20); Calcium 9.2 mg/dl (8.4-10.2); Carbon Dioxide 34 mmol/L (22-30); Chloride 94 mmol/L (98-107); Estimated Creatinine Clearance 41 ml/min; Glucose 104 mg/dl (70-99); Potassium 3.7 mmol/L (3.5-5.1); Sodium 133 mmol/L (135-145); Total Protein 6.8 g/dl (6.3-8.2); eGFR 59.63
[2024-10-17] MEDS: ANCEF 10 IV ×3 (06:08→22:03)
--- NOTE | 2024-10-17 08:17 | W.PN.CD ---
Today's Communication / Plan
-
- Life Vest today
- PICC line for antibiotics
- Plan for ICD in 3 months.
Impression / Plan
-
Primary cardiolog: Dr. Hayden Khanna at [facility]
MSSA Bacteremia - acute, treated with IV ABX per ID.
- s/p ppm explant
- Blood Cx: - +ve MSSA at [facility]; 10/11/24 - +ve MSSA at ; extraction 10/12; No growth since then.
- Antibiotics as per ID
BiV PPM -
10/12/24:Successful extraction of the CLIN TECH-P system, placement of temporary pacemaker and implantation of permanent leadless pacemaker
Echo 10/13/24: No effusion
Severe TR: 2/2 to RV Dilation and failure of leaflets to coapt
-continue aldactone
VT
- s/p Sub Q ICD - [employer]
- Poor R wave sensing. The programming was done to avoid T wave oversensing. However, pt received two shocks on 10/15/24 due to noise sensed as VF
- ICD is turned off at this time
- Pt is at risk of VT and SCD and is not protected to due poor sensing of the R wave by sub Q ICD
- Plan for lifevest for 1-3 months while on antibiotics and recovering from sepsis.
- Plan for transvenous ICD (Left bundle pacing ICD) for this pacemaker dependent patient and possible extraction of the Micra in 1-3 months.
HFpEF;
- acute on chronic
- Close to baseline
- No need to get to the dry weight paxton with ongoing infection
- Cr is improved and at baseline.
- Continue IV lasix for now,
- Plan to discharge at Lasix 80 mg PO QD and Metolazone 2.5 mg QD.
- continue aldactone but at 1/2 dose
- Will hold off on SGLT2i with infection, but could be considered in the future
- per last op note with Dr Lax dry wt range 154-162 on 09/18/24.
CAD - stable w/o angina, continue medical therapy.
- s/p CABG x 2 (2018)
HTN - stable on meds, continue.
Afib - permanent.
- rate controlled on Coreg, continue.
- Eliquis held for procedure, on arrival started on IV Heparin that was just turned off procedure.
LEONOR - stable on CPAP.
Subjective:
he is feeling well. ambulating. OOB. Out of ICU to IVU now. Had ICD shocks x 2 yesterday.
TTE 10/13/24:
SUMMARY
1. Normal left ventricular size and systolic function with moderate LVH. Ejection fraction 55 to 60%.
2. Severely dilated right ventricle with normal systolic function.
3. Severe tricuspid regurgitation as leaflets do not coapt. Pulmonary pressure may be underestimated due to severe regurgitation.
4. Mild to moderate aortic stenosis. Trace aortic regurgitation.
5. No pericardial effusion.
6. Mildly dilated ascending aorta.
7. Compared to the prior on 08/20/2024, pacer wire no longer seen in the right heart chambers.
Physical Exam
Vital Signs/Labs
Vital Signs
Temp Pulse Resp BP Pulse Ox
97.4 F 79 16 111/71 95
10/17/24 02:33 10/17/24 08:00 10/17/24 02:33 10/17/24 02:34 10/17/24 02:33
10/16/24 10/17/24 10/18/24
06:59 06:59 06:59
Actual Weight 74.7 kg
10/17/24 02:50
10/17/24 02:50
APTT Cancelled 10/12/24 10:20
Magnesium 2.0 mg/dl (1.6-2.3) 10/16/24 03:51
Physical Exam
Constitutional: No acute distress and Comfortable
EENT: Anicteric and Moist mucous membranes
Cardiovascular: Rhythm & rate is regular, Pedal edema is absent and JVD present
Respiratory: Respiratory effort normal, Wheeze Absent and Crackles Absent
GI: Soft, Non tender and Normal bowel sounds
Neuro/Psych: Alert and Oriented
Other: Skin and Cath Site
Data Reviewed
-
Date of Service: October 17, 2024
Medical Decision Making: Reviewed Test Results, Test Interpretation and Review of Case with other Provider
EKG: Tracing Personally Visualized and interpreted
Echo: Report Reviewed by me
X-Ray/CT/US/MRI/NUC/PET: Image Personally Visualized and interpreted
Labs: Labs Reviewed by me
Old Records: Reviewed
[2024-10-17] MEDS: CRESTOR 10 MG PO (08:18)
[2024-10-17] MEDS: PROSCAR 5 MG PO (08:18)
[2024-10-17] MEDS: ELIQUIS 5 MG PO ×2 (08:18→19:43)
[2024-10-17] MEDS: LASIX 80 MG PO (08:18)
[2024-10-17] MEDS: COREG 6.25 MG PO ×2 (08:18→19:44)
[2024-10-17] MEDS: ALDACTONE 12.5 MG PO (08:18)
[2024-10-17] MEDS: FLOMAX 0.4 MG PO (08:18)
[2024-10-17] MEDS: ZOLOFT 25 MG PO (08:18)
[2024-10-17] MEDS: PROTONIX 40 MG PO (08:18)
[2024-10-17] MEDS: ZAROXOLYN 2.5 MG PO (08:18)
--- NOTE | 2024-10-17 09:32 | W.PN.ID1 ---
Date of Service
Date of Service: October 17, 2024
Today's Communication
DC home once PICC in place and home IV abx set up.
Assessment / Plan
# MSSA bacteremia OSH (sensitive: oxacillin, tetra, t/sulfa, clinda)
# Fever resolved
# Presence of AICD/PPM -> total extraction 10/12
# Afib, CAD, ICM
- 10/11 Repeat blood cultures (1 0f 2 sets) + MSSA
- 10/13 blood cx's x 2, neg x 24h
- Outside DAVID neg vegetation
- 10/12/24 s/p AICD/PPM total extraction and implant of permanent leadless PPM
Lead tip cx NGTD
Pocket cx NGTD
- Enroute to IR for PICC placement.
- Continue cefazolin 2g IV q8 x 6 weeks through 11/23/24.
- Follow weekly CBC, CMP
- Infusion sheet submitted to shelter case manager.
# Conditions CHICKEN AND FISH CLEANER
Atrial fibrillation
CAD status post CABG x 2
Ischemic cardiomyopathy status post Biotronik biventricular cardiac pacemaker (LINUX ADMINISTRATOR-P) last replaced 7 years ago at [place]
Aortic stenosis
LEONOR on CPAP
Bilateral CEA
Chief Complaint
-: Bacteremia (Staph aureus)
Subjective / Review of Systems
Feels well.
Vital Signs / Physical Exam
Vital Signs
Vital Signs
Temp Pulse Resp BP Pulse Ox
97.1 F 72 18 115/68 95
10/17/24 08:16 10/17/24 08:18 10/17/24 08:16 10/17/24 08:18 10/17/24 08:16
Physical Exam
Constitutional: No Acute Distress and Comfortable
Cardiovascular: Regular Rate and S1/S2
Pulmonary: Clear
Gastrointestinal: Soft, Non Tender and Non Distended
Extremities: Negative Edema
Neurological: AO x 3
Objective Data
Lab Data
Lab Results
10/17/24 02:50
10/17/24 02:50
APTT Cancelled 10/12/24 10:20
Estimated Creat Clear 41 ml/min 10/17/24 02:50
Total Bilirubin 0.7 mg/dl (0.2-1.3) 10/17/24 02:50
AST 23 U/L (17-59) 10/17/24 02:50
ALT < 10 U/L (0-50) 10/17/24 02:50
Alkaline Phosphatase 88 U/L (38-126) 10/17/24 02:50
Most recent labs reviewed.
Micro Results:
10/11/24 21:30 Blood Culture - Final
Blood/Venous No Growth - Final Report
10/13/24 10:45 Blood Culture - Preliminary
Blood/Venous No Growth in 72 hours- Final report to follow
10/13/24 12:17 Blood Culture - Preliminary
Blood/Venous No Growth in 72 hours- Final report to follow
10/12/24 12:15 Anaerobic Culture - Preliminary
Chest - Right NO ANAEROBES ISOLATED
10/12/24 12:15 Catheter Tip Culture - Final
Pace Maker/Introd Port No Growth After 72 Hours
10/12/24 12:15 Wound Culture - Preliminary
Chest - Right No growth
Gram Stain - Preliminary
10/11/24 20:47 Blood Culture - Preliminary
Blood/Venous S aureus-Methicillin Sensitive
Gram Stain - Preliminary
10/11/24 18:48 MRSA Screen - Final
Nose No Methicillin Resistant Staphylococcus aureus isolated.
--- NOTE | 2024-10-17 10:23 | PTCARENOTE ---
PICC line placed by [facility] RTR right basilic. during placement, wire unable to be advanced and central venous occlusion confirmed with contrast study-10ml Visipaque injected. PICC line cut to 24cm (at axilla). VAT and primary RN made aware.
--- NOTE | 2024-10-17 11:07 | PTCARENOTE ---
Pt is AOx3, no complaints of pain or discomfort. Went to IR for Picc line this AM. LifeVest rep teaching with pt and family this AM. Assist x1 OOB with walker. V-paced on tele monitor, VSS. Call vann within reach.
--- NOTE | 2024-10-17 13:23 | W.PN.HOSP.TC ---
Today's Communication/Plan
-
monitor vitals
see plan
midline
abx
life vest
lasix
dc planning
Assessment / Plan
Assessment / Plan
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
-Repeat blood culture reported to be clear at [facility]
-TTE and DAVID did not show any evidence of vegetation or endocarditis
-s/p pacemaker extraction and reimplantation on 10/10
-Repeat blood culture from 10/11 is growing Staphylococcus aureus, MSSA
-Blood cs from 10/13 is showing NTD
-6 weeks of antibiotic will be warranted from 2 negative blood culture date. ID help appreciated. 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 Midline catheter placed. Will need to be replaced in 29 days
-Heparin drip has been changed to Eliquis
ICD is turned off at this time
- Pt is at risk of VT and SCD and is not protected to due poor sensing of the R wave by sub Q ICD
- Plan for lifevest for 1-3 months while on antibiotics and recovering from sepsis.
- Plan for transvenous ICD (Left bundle pacing ICD) for this pacemaker dependent patient and possible extraction of the Micra in 1-3 months.
# Severe aortic stenosis
- Would likely need evaluation for TAVR after evaluation of pacemaker. Defer to cardiology
#CAD status post CABG x 2 in 2018
Acute on chronic HFpEF
Ischemic cardiomyopathy
-Continue spironolactone
-Patient normally on Coreg 6.25 twice daily, resumed
- Per cardiology, change IV Lasix to 80 mg p.o. daily. Metolazone 2.5 mg p.o. daily
-Monitor weight and creatinine
-Some reported wheezing. Adding DuoNeb therapy. No reported history of COPD
Discussed with cardiology, for LifeVest today
# History of ventricular tachycardia
Permanent atrial fibrillation
-Eliquis resumed.
Moderate to severe tricuspid regurgitation
Obstructive carotid artery disease status post left CEA
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
Hyperlipidemia - Continue statin
Obstructive sleep apnea - Continue CPAP at night
BPH - Continue finasteride, tamsulosin
GERD - Continue Protonix
Anxiety/depression - Continue sertraline
Full code
DVT prophylaxis�Eliquis
General: No Apparent Distress and Comfortable
HEENT: Anicteric, pink conjunctiva
Respiratory: Rhonchi and Other (Right chest pacemaker scar - no tenderness/swelling)
Cardiac: Regular Rhythm and S1/S2; Negative Murmur or Rub
Musculoskeletal: No Edema
Neuro: Awake, Alert, Oriented, No Motor Deficits and Nonfocal/Grossly Intact
Psych: Calm
Anticipated Discharge: Within 24 hours
Subjective/Interval History
-
Date of Service: October 17, 2024
denies pain
Objective Data
-
Labs:
Laboratory Results
10/17/24
02:50
WBC 6.9
Hgb 9.5 L
Hct 28.4 L
Plt Count 128 L
Sodium 133 L
Potassium 3.7
Chloride 94 L
Carbon Dioxide 34 H
BUN 41 H
Creatinine 1.2
Glucose 104 H
Calcium 9.2
Total Bilirubin 0.7
AST 23
ALT < 10
Alkaline Phosphatase 88
Vital Signs:
Vital Signs
Temp Pulse Resp BP Pulse Ox
98.4 F 72 18 108/67 95
10/17/24 11:41 10/17/24 12:00 10/17/24 11:41 10/17/24 11:39 10/17/24 11:41
I&O
10/16/24 10/17/24 10/18/24
06:59 06:59 06:59
Output Total 2350 / 2350 1350 / 1350
Balance -2350 / -2350 -1350 / -1350
--- NOTE | 2024-10-17 13:37 | CM ---
Chart reviewed. Patient is independent of ADLS, lives with his in a [address], [facility], ambulates with a SPC. Patient received a lifevest today. Patient went for a PICC line, unsuccessful and a midline was placed. Plan is for the patient to go
to [facility] with a lifevest when medically stable.
--- NOTE | 2024-10-17 15:14 | VATNOTE ---
Dr. Pryor made aware that pt's line that was placed by IR is not central. Per IR, pt has an occlusion making a PICC not possible. Decision made by radiologist to cut PICC at axilla. TCL is [address] Pryor ok w/ this access, and that pt will have to
return for replacement of line at 29 days. Case management also made aware. Will continue to monitor.
[2024-10-18] VITALS (10 sets, daily range): BP systolic 99–149; BP diastolic 59–83; PULSE 71–74; O2SAT 91–95
--- NOTE | 2024-10-18 01:37 | PTCARENOTE ---
Received pt @ change of shift. AAOx3, VSS-- V-paced on monitor. Bilateral groin sites clean, dry, and intact. Ecchymotic, soft to touch. PICC line in right upper extremity assess-- blood return. Discussed plan of care for evening. Pt verbalizes
understanding. Call vann within reach.
[2024-10-18 04:14] LABS: Hematocrit 29.6 % (39.0-52.0); Hemoglobin 9.9 g/dL (13.0-18.0); Mean Corp Hgb Conc. 33.4 g/dL (33.0-37.0); Mean Corpuscular Volume 97.7 fL (80.0-94.0); Nucleated Red Blood Cells % 0 % (-); Platelet Count 118 10^3/uL (130-400); Red Cell Dist. Width 14.7 % (11.5-14.5)
[2024-10-18 04:27] LABS: ALT (SGPT) < 10 U/L (0-50); AST (SGOT) 25 U/L (17-59); Albumin 3.7 g/dl (3.5-5.0); Alkaline Phosphatase 95 U/L (38-126); Blood Urea Nitrogen 44 mg/dl (9-20); Calcium 9.0 mg/dl (8.4-10.2); Carbon Dioxide 35 mmol/L (22-30); Chloride 91 mmol/L (98-107); Estimated Creatinine Clearance 38 ml/min; Glucose 110 mg/dl (70-99); Potassium 3.8 mmol/L (3.5-5.1); Sodium 133 mmol/L (135-145); Total Protein 7.2 g/dl (6.3-8.2); eGFR 54.17
[2024-10-18] MEDS: ANCEF 10 IV ×2 (05:56→13:14)
[2024-10-18] MEDS: PROSCAR 5 MG PO (07:46)
[2024-10-18] MEDS: CRESTOR 10 MG PO (07:46)
[2024-10-18] MEDS: FLOMAX 0.4 MG PO (07:46)
[2024-10-18] MEDS: LASIX 80 MG PO (07:46)
[2024-10-18] MEDS: ZOLOFT 25 MG PO (07:46)
[2024-10-18] MEDS: ZAROXOLYN 2.5 MG PO (07:46)
[2024-10-18] MEDS: ALDACTONE 12.5 MG PO (07:46)
[2024-10-18] MEDS: COREG 6.25 MG PO (07:47)
[2024-10-18] MEDS: ELIQUIS 5 MG PO (07:47)
[2024-10-18] MEDS: PROTONIX 40 MG PO (07:47)
--- NOTE | 2024-10-18 10:07 | W.PN.ID1 ---
Date of Service
Date of Service: October 18, 2024
Today's Communication
Continue cefazolin.
Assessment / Plan
# MSSA bacteremia OSH (sensitive: oxacillin, tetra, t/sulfa, clinda)
# Fever resolved
# Presence of AICD/PPM -> total extraction 10/12
# Afib, CAD, ICM
- 10/11 Repeat blood cultures (1 0f 2 sets) + MSSA
- 10/13 blood cx's x 2, neg
- Outside DAVID neg vegetation
- 10/12/24 s/p AICD/PPM total extraction and implant of permanent leadless PPM
Lead tip cx neg
Pocket cx neg
- 10/[address] PICC due to distal arterial occlusion.
Midline placed instead. Midline needs to be exchanged, day 29.
- Continue cefazolin 2g IV q8 x 6 weeks through 11/23/24.
- Follow weekly CBC, CMP
- Infusion sheet submitted to patient case coordinator.
# Conditions ONCOLOGY NURSE
Atrial fibrillation
CAD status post CABG x 2
Ischemic cardiomyopathy status post Biotronik biventricular cardiac pacemaker (MI[employer]WRIGHT HELPER-P) last replaced 7 years ago at [facility]
Aortic stenosis
LEONOR on CPAP
Bilateral CEA
Chief Complaint
-: Bacteremia (Staph aureus)
Subjective / Review of Systems
Daughter at bedside.
Waiting for Life Vest.
Vital Signs / Physical Exam
Vital Signs
Vital Signs
Temp Pulse Resp BP Pulse Ox
97.7 F 74 20 119/72 91
10/18/24 06:52 10/18/24 09:42 10/18/24 06:52 10/18/24 09:42 10/18/24 09:42
Physical Exam
Constitutional: No Acute Distress and Comfortable
Cardiovascular: Regular Rate and S1/S2
Pulmonary: Clear
Gastrointestinal: Soft, Non Tender and Non Distended
Extremities: Negative Edema
Neurological: AO x 3
Lines: Other (RUE midline)
Objective Data
Lab Data
Lab Results
10/18/24 03:33
10/18/24 03:33
APTT Cancelled 10/12/24 10:20
Estimated Creat Clear 38 ml/min 10/18/24 03:33
Total Bilirubin 0.9 mg/dl (0.2-1.3) 10/18/24 03:33
AST 25 U/L (17-59) 10/18/24 03:33
ALT < 10 U/L (0-50) 10/18/24 03:33
Alkaline Phosphatase 95 U/L (38-126) 10/18/24 03:33
Most recent labs reviewed.
Micro Results:
10/11/24 20:47 Blood Culture - Final
Blood/Venous S aureus-Methicillin Sensitive
Gram Stain - Final
10/13/24 10:45 Blood Culture - Preliminary
Blood/Venous No Growth in 4 days- Final report to follow
10/12/24 12:15 Wound Culture - Final
Chest - Right No growth
Gram Stain - Final
10/12/24 12:15 Anaerobic Culture - Final
Chest - Right NO ANAEROBES ISOLATED
10/13/24 12:17 Blood Culture - Preliminary
Blood/Venous No Growth in 4 days- Final report to follow
10/11/24 21:30 Blood Culture - Final
Blood/Venous No Growth - Final Report
10/12/24 12:15 Catheter Tip Culture - Final
Pace Maker/Introd Port No Growth After 72 Hours
10/11/24 18:48 MRSA Screen - Final
Nose No Methicillin Resistant Staphylococcus aureus isolated.
--- NOTE | 2024-10-18 11:27 | W.PN.HOSP.TC ---
Addendum entered and electronically signed by Vitaly Nowak MD 10/18/24 14:01:
Per cardiology, patient's ICD was reprogrammed and is now adequately sensing. No need for LifeVest at this time. If recurs then will need LifeVest.
Original Note:
Today's Communication/Plan
-
Monitor vital signs see plan
Discussed with cardiology, okay for discharge today
Now fitted with LifeVest
Continue with antibiotics
Midline need to be exchanged in 28 days
Time of discharge 39 minutes
Assessment / Plan
Assessment / Plan
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
-Repeat blood culture reported to be clear at [facility]
-TTE and DAVID did not show any evidence of vegetation or endocarditis
-s/p pacemaker extraction and reimplantation on 10/10
-Repeat blood culture from 10/11 is growing Staphylococcus aureus, MSSA
-Blood cs from 10/13 is showing NTD
-6 weeks of antibiotic will be warranted from 2 negative blood culture date. ID help appreciated. 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 Midline catheter placed. Will need to be replaced in 29 days
-Heparin drip has been changed to Eliquis
ICD is turned off at this time
- Pt is at risk of VT and SCD and is not protected to due poor sensing of the R wave by sub Q ICD
- Plan for lifevest for 1-3 months while on antibiotics and recovering from sepsis.
- Plan for transvenous ICD (Left bundle pacing ICD) for this pacemaker dependent patient and possible extraction of the Micra in 1-3 months.
Now fitted with LifeVest. Discussed with cardiology and they are okay with patient being discharged
# Severe aortic stenosis
- Would likely need evaluation for TAVR after evaluation of pacemaker. Defer to cardiology
#CAD status post CABG x 2 in 2018
Acute on chronic HFpEF
Ischemic cardiomyopathy
-Continue spironolactone
-Patient normally on Coreg 6.25 twice daily, resumed
- Per cardiology, change IV Lasix to 80 mg p.o. daily. Metolazone 2.5 mg p.o. daily
-Monitor weight and creatinine
-Some reported wheezing. Adding DuoNeb therapy. No reported history of COPD
Now fitted with LifeVest. Discussed with cardiology and they are okay with patient being discharged
Hyponatremia
Monitor
# History of ventricular tachycardia
Permanent atrial fibrillation
-Eliquis resumed.
Moderate to severe tricuspid regurgitation
Obstructive carotid artery disease status post left CEA
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
Hyperlipidemia - Continue statin
Obstructive sleep apnea - Continue CPAP at night
BPH - Continue finasteride, tamsulosin
GERD - Continue Protonix
Anxiety/depression - Continue sertraline
Full code
DVT prophylaxis�Eliquis
General: No Apparent Distress and Comfortable
HEENT: Anicteric, pink conjunctiva
Respiratory: Rhonchi and Other (Right chest pacemaker scar - no tenderness/swelling)
Cardiac: Regular Rhythm and S1/S2; Negative Murmur or Rub
Musculoskeletal: No Edema
Neuro: Awake, Alert, Oriented, No Motor Deficits and Nonfocal/Grossly Intact
Psych: Calm
Anticipated Discharge: Today
Subjective/Interval History
-
Date of Service: October 18, 2024
Denies pain
Objective Data
-
Labs:
Laboratory Results
10/18/24
03:33
WBC 7.1
Hgb 9.9 L
Hct 29.6 L
Plt Count 118 L
Sodium 133 L
Potassium 3.8
Chloride 91 L
Carbon Dioxide 35 H
BUN 44 H
Creatinine 1.3
Glucose 110 H
Calcium 9.0
Total Bilirubin 0.9
AST 25
ALT < 10
Alkaline Phosphatase 95
Vital Signs:
Vital Signs
Temp Pulse Resp BP Pulse Ox
97.7 F 74 20 119/72 91
10/18/24 06:52 10/18/24 09:42 10/18/24 06:52 10/18/24 09:42 10/18/24 09:42
I&O
10/17/24 10/18/24 10/19/24
06:59 06:59 06:59
Output Total 1350 / 1350 1125 / 1125
Balance -1350 / -1350 -1125 / -1125
--- NOTE | 2024-10-18 12:00 | W.DCSUMMARY ---
Discharge Summary
Discharge Data
Date of Admission: 10/11/24
Date of Discharge: 10/18/24
-
Pending Results: Yes
Hospital Course
84-year-old male with past medical history of CAD status post CABG, ischemic cardiomyopathy, with biventricular cardiac pacemaker, ventricular tachycardia, pulmonary atrial fibrillation, moderate to severe tricuspid regurgitation, moderate aortic
stenosis, obstructive carotid artery disease status post left CEA, right CEA, hypertension, hyperlipidemia, obstructive sleep apnea came to the hospital as a transfer from [facility] for concern for infected pacemaker/ICD. TTE and DAVID did not
show any signs of vegetation or endocarditis. Patient did had MSSA bacteremia. Patient was seen by infectious disease throughout hospitalization and was eventually discharged on 6 weeks of total antibiotics. Patient did had total extraction of
pacemaker. At that time temporary leadless pacemaker was placed however patient then had 2 shocks due to oversensing. Initially plan was for LifeVest however then patient ICD was reprogrammed and was adequately sensing. Cardiology then
recommended patient for discharge without LifeVest and if issues occurs in future then will get LifeVest. While patient was in the hospital he also had acute on chronic congestive heart failure exacerbation which was treated with IV Lasix which was
later transitioned to oral Lasix prior to discharge. Patient was also evaluated by physical therapy who recommended SNF. Once his symptoms continue to improve, he was then discharged to rehab with instructions to follow-up with all his physicians
outpatient. Prior to discharge he had midline for his antibiotics for which she was instructed to come back for replacement of his midline after 29 days.
Discharge Plan
-
Patient Disposition: Detention/SNF
Discharge Diagnosis/Procedures: Lead extraction and MICRA leadless pacemaker implant
Acute on chronic congestive heart failure
MSSA bacteremia
Ventricular tachycardia
Condition: Good
Diet: Low Cholesterol
Activity: With assistance and As tolerated
Driving Restrictions: No driving for 24 hours
Bathing Restrictions: OK to Shower
Activity Restrictions/Additional Instructions:
Per cardiology ICD is now working. No need for life vest at this time
patient needs to come back to the hospital by Nov 15 (29 days) for exchange of the midline cath
Continue cefazolin 2g IV q8 x 6 weeks through 11/23/24.
- Follow weekly CBC, CMP
Stand Alone Forms: DC Instructions- Cath/EP Lab
Referrals:
[facility]- CBC [Provider Group]
Referral Note: Incision check appointment
[facility] [Outside]
Referral Note: FAX [phone]
[facility] [Outside]
Rajesh Christian MD [Active, Radiology]
Wilda Myers CRNP [Specified Professional Personl, Cardiology] - 10/29/24 3:00 pm
Hayden Khanna MD [Active, Cardiology] - in four to six weeks
Alek Mireles MD [Family Provider, Internal Medicine] - in less than 1 week
Yvonne Pryor MD [Active, Infectious Diseases] - in three to four weeks
Prescriptions:
New
acetaminophen 325 mg Tablet
650 mg PO Q4HPRN PRN (Reason: mild pain) Qty: 0 0RF
carvedilol 6.25 mg Tablet
6.25 mg PO BID Qty: 0 0RF
cefazolin 10 gram Recon Soln
2 g IV Q8H Qty: 0 0RF
furosemide 80 mg Tablet
80 mg PO DAILY Qty: 0 0RF
Eliquis 5 mg Tablet
5 mg PO BID Qty: 0 0RF
Continued
tamsulosin 0.4 MG capsule
0.4 mg PO DAILY
finasteride 5 MG tablet
5 mg PO DAILY
metolazone 2.5 mg Tablet
2.5 mg PO DAILY
spironolactone 25 mg Tablet
12.5 mg PO DAILY
pantoprazole 40 mg Tablet,Delayed Release (Dr/Ec)
40 mg PO DAILY
sertraline 25 mg Tablet
25 mg PO DAILY
rosuvastatin 10 mg Tablet
10 mg PO DAILY
Discontinued
Eliquis 2.5 mg Tablet
2.5 mg PO BID
carvedilol [Coreg] 6.25 mg Tablet
6.25 mg PO DAILY
Patient Comments:
Pt endorses that he takes this once a day instead of twice
Discharge Orders:
Discharge Patient (As Directed); Ordered 10/18/24
Ordered By: Vitaly Nowak
Care Plan Goals
Care Plan Goals:
Problem: Readiness for enhanced knowledge related to diagnosis and treatment plan
Goal: Understand your diagnosis and treatment plan needs, including medications if applicable.
Instructions: Know your diagnosis, underlying causes and treatment plan options, including medications if applicable. Consult with your health care team to learn about your diagnosis and treatment plan, including medications if applicable.
Discharge Date and Time
Discharge Date/Time: 10/18/24 15:19
Print Language: BELARUSIAN
--- NOTE | 2024-10-18 12:02 | PTCARENOTE ---
ICD device rep at bedside and reprogrammed and turned on ICD. Report placed in chart. Dr. Farrell made aware and per Dr. Farrell pt will still be discharged with life vest on.
--- NOTE | 2024-10-18 12:05 | CM ---
Addendum entered by Marla May RN 10/18/24 12:30:
Updated [facility] Katelyn Davis, of patients discharge and midline catheter change within 29 days, November 15
Addendum entered by Marla May RN 10/18/24 12:28:
Updates [facility]. Also let the[place]ale citys know that the Life Garment will be delivered in 2-3 days. Patient will come with a battery backup. Patient will need to come back to the hospital in 29 days for a midline catheter exchange. Dr Nowak to
place in discharge instructions
Original Note:
Insurance authorization approved for transfer to [facility]. Authorization # [id number] Skilled Level 1 10/18-10/22 NRD 10/22
--- NOTE | 2024-10-18 12:26 | VATNOTE ---
Vat rounds: Patient with catheter placed in Ir to a midline due to subclavian occlusion. TCL 24CM ECl 2CM. Patient will be returning on 11/14 for an exchange to a new midline catheter for abx through 11/23 . Case management aware.
--- NOTE | 2024-10-18 13:47 | W.CARD.DEVCH ---
Cardiac Device Check
-
Device: Implanted Cardioverter-Defibrillator
Telephone Answerer: [employer]
The patient's device was interrogated with assistance of the device product support sales representative followed by a complete physician review. The device had normal function. No abnormalities seen.
The reprogramming from the dive was able to improve the sensing and now the ICD is sensing adequate R waves. With improved sensing, the VT/defib threshold was changed to 240 bpm.
The device is active now.
Will be able to send pt home with the ICD in working condition.
If there is another inappropriate shock noted, will turn off the ICD and plan for intravascular device with lifevest coverage. For now, pt can go home with active ICD and no need for life vest.
--- NOTE | 2024-10-18 13:50 | W.PN.UPDATE ---
Update Note
Progress Note Update
The reprogramming from the dive was able to improve the sensing and now the ICD is sensing adequate R waves. With improved sensing, the VT/defib threshold was changed to 240 bpm.
The device is active now.
Will be able to send pt home with the ICD in working condition.
If there is another inappropriate shock noted, will turn off the ICD and plan for intravascular device with lifevest coverage. For now, pt can go home with active ICD and no need for life vest.
Remove the Life vest (Pt has difficulty with attempting to press the buttons on the device). If subQ icd is working normally then this is his best option.
--- NOTE | 2024-10-18 14:21 | PTCARENOTE ---
Per life vest company, life vest and ICD programmed on are not compatible. Dr. Farrell made aware and decision made to discontinue life vest.
--- NOTE | 2024-10-18 14:57 | PTCARENOTE ---
IV and tele removed. Transfer form and copies of chart sent over w/ pt via acute care. Report called to Ilya to Danna BISHOP.
== END 2024-10-18 15:19 | DRG 228 ==
LOC: IVU 18:21
PROVIDERS: Hospitalist; Nurse Practitioner Adult Health; Nurse Practitioner Gerontology; Radiology Vascular & Interventional Radiology; ADMITTING PHYSICIAN Internal Medicine Cardiovascular Disease; ATTENDING PHYSICIAN Internal Medicine; CONSULT PHYSICIAN Internal Medicine Infectious Disease; FAMILY PHYSICIAN Internal Medicine
PROC: 5A09357 Assistance with Respiratory Ventilation, Less than 24 Consecutive Hours, Continuous Positive Airway Pressure (ICD-10-PCS; 2024-10-11)
PROC: 02HK3NZ Insertion of Intracardiac Pacemaker into Right Ventricle, Percutaneous Approach (ICD-10-PCS; 2024-10-12)
PROC: 0JPT0PZ Removal of Cardiac Rhythm Related Device from Trunk Subcutaneous Tissue and Fascia, Open Approach (ICD-10-PCS; 2024-10-12)
PROC: 02PA3MZ Removal of Cardiac Lead from Heart, Percutaneous Approach (ICD-10-PCS; 2024-10-12)
PROC: 4B02XSZ Measurement of Cardiac Pacemaker, External Approach (ICD-10-PCS; 2024-10-15)
PROC: 4B02XTZ Measurement of Cardiac Defibrillator, External Approach (ICD-10-PCS; 2024-10-16)
PROC: 02HV33Z Insertion of Infusion Device into Superior Vena Cava, Percutaneous Approach (ICD-10-PCS; 2024-10-16)
PROC: 05HY33Z Insertion of Infusion Device into Upper Vein, Percutaneous Approach (ICD-10-PCS; 2024-10-17)
DX: T82.7XXA Infection and inflammatory reaction due to other cardiac and vascular devices, implants and grafts, initial encounter (principal); I50.33 Acute on chronic diastolic (congestive) heart failure; I47.20 Ventricular tachycardia, unspecified; I48.21 Permanent atrial fibrillation; R78.81 Bacteremia; E87.1 Hypo-osmolality and hyponatremia; I25.10 Atherosclerotic heart disease of native coronary artery without angina pectoris; I25.5 Ischemic cardiomyopathy; I08.2 Rheumatic disorders of both aortic and tricuspid valves; I11.0 Hypertensive heart disease with heart failure; E78.5 Hyperlipidemia, unspecified; G47.33 Obstructive sleep apnea (adult) (pediatric); K21.9 Gastro-esophageal reflux disease without esophagitis; N40.0 Benign prostatic hyperplasia without lower urinary tract symptoms; F32.A Depression, unspecified; F41.9 Anxiety disorder, unspecified; I73.9 Peripheral vascular disease, unspecified; I65.23 Occlusion and stenosis of bilateral carotid arteries; Y71.3 Surgical instruments, materials and cardiovascular devices (including sutures) associated with adverse incidents; Y83.1 Surgical operation with implant of artificial internal device as the cause of abnormal reaction of the patient, or of later complication, without mention of misadventure at the time of the procedure; B95.61 Methicillin susceptible Staphylococcus aureus infection as the cause of diseases classified elsewhere; Z79.01 Long term (current) use of anticoagulants; Z79.82 Long term (current) use of aspirin; Z79.899 Other long term (current) drug therapy; Z82.49 Family history of ischemic heart disease and other diseases of the circulatory system; Z95.1 Presence of aortocoronary bypass graft
CPT/HCPCS: 33233; 33235; 33274; 36573; 71045; 80048; 80053; 82248; 83735; 84132; 85025; 85027; 85730; 86850; 86900; 86901; 86920; 87040; 87070; 87075; 87084; 87150; 87186; 87205; 93005; 93308; 93321; 93325; 94640; 94660; 97110; 97116; 97163; 97167; 97530; 97535; C1769; C1786; C1894; Q9967

== ENCOUNTER 2024-11-09 20:04 | Emergency (ER) | payer OTHER, SELFPAY ==
[2024-11-09 20:06] VITALS: BP 115/60
--- NOTE | 2024-11-09 20:39 | ED.GENMED ---
History of Present Illness
General
Chief Complaint: Catheter/Tube Problem
Source: patient
Exam Limitations: none
Time Seen by Provider: 11/09/24 20:24
History of Present Illness
History of Present Illness:
84-year-old male presents from [facility] for replacement of midline catheter. He was here in October for MSSA bacteremia. He had a pacemaker exchange. He was discharged on Ancef 2 g IV every 8 hours. He was due to have his midline catheter
replaced as of November 14. There is some confusion at the facility as he was being discharged from this facility tomorrow and they removed his midline yesterday. No complaints of fever chest pain or shortness of breath.
Phy Exam
Physical Exam
Physical Exam:
General: Well-appearing male no acute respiratory distress
HEENT: Normocephalic atraumatic
Heart: Regular rate and rhythm
Lungs: Clear
Skin: Warm, no rash
Course
Orders/Labs/Results
Orders:
Orders
11/09/24 20:38
CeFAZolin 2 GRAM [Ancef] 2 grams in 10 ml IV NOW
Vital Signs
Initial and Last Documented VS:
Initial Vital Signs
Temp Pulse Resp BP Pulse Ox
98.1 F 74 18 115/60 98
11/09/24 20:06 11/09/24 20:06 11/09/24 20:06 11/09/24 20:06 11/09/24 20:06
Last Documented Vital Signs
Temp Pulse Resp BP Pulse Ox
98.1 F 74 18 115/60 98
11/09/24 20:06 11/09/24 20:06 11/09/24 20:06 11/09/24 20:06 11/09/24 20:42
MDM/Problems Addressed
Differential Diagnosis Includes:
Patient presents for replacement of midline as his was inadvertently removed at the facility. He was discharged on 2 g Ancef IV every 8 hours for his MSSA bacteremia. vascular access team consulted for midline placement. Ancef ordered
*Pulse Oximetry
SaO2: 98
Oxygen Mode of Delivery: Room air
Patient hypoxic: no
*Critical Care Note
Total Time (30-74mins, 75-104mins- exclusive of procedures): Not Applicable
Update Note
Update Note:
Vascular access team notified and they were able to place a midline in the patient's left arm. We restarted his Ancef. He will be discharged back to facility
ED Attending Note
-
Portions of this chart may have been created with voice recognition software.� Occasional wrong word or��sound alike� substitutions may have occurred due to the inherent limitations of voice recognition software.
Discharge Plan
Departure
Patient Disposition: Home (Routine Discharge)
Date of Disposition: 11/09/24
Time of Disposition: 22:01
Patient with high blood pressure during this ER visit?: No
Discharge Problem:
placement of midline
Prescriptions:
No Action
tamsulosin 0.4 MG capsule
0.4 mg PO DAILY
finasteride 5 MG tablet
5 mg PO DAILY
metolazone 2.5 mg Tablet
2.5 mg PO DAILY
spironolactone 25 mg Tablet
12.5 mg PO DAILY
pantoprazole 40 mg Tablet,Delayed Release (Dr/Ec)
40 mg PO DAILY
sertraline 25 mg Tablet
25 mg PO DAILY
rosuvastatin 10 mg Tablet
10 mg PO DAILY
acetaminophen 325 mg Tablet
650 mg PO Q4HPRN PRN (Reason: mild pain) Qty: 0 0RF
carvedilol 6.25 mg Tablet
6.25 mg PO BID Qty: 0 0RF
cefazolin 10 gram Recon Soln
2 g IV Q8H Qty: 0 0RF
furosemide 80 mg Tablet
80 mg PO DAILY Qty: 0 0RF
Eliquis 5 mg Tablet
5 mg PO BID Qty: 0 0RF
Referrals:
Blayne Norwood MD [Family Provider, Internal Medicine]
Activity Restrictions/Additional Instructions:
Continue antibiotics as directed. Return if needed
Interventions
Interventions:
*Risk Screen - Suicide Last Done: 11/09/24 20:06
*General Assessment Last Done: 11/09/24 20:06
*Neglect/Abuse Screening Last Done: 11/09/24 20:06
*ED- Fall Risk Assessment Last Done: 11/09/24 20:06
*ED COVID-19 Vaccine History Last Done: 11/09/24 20:06
Discharge Date and Time
Print Language: YAKUT
[2024-11-09] MEDS: ANCEF 10 IV (21:34)
--- NOTE | 2024-11-09 21:46 | VATNOTE ---
called to replace midline that according to daughter rehab facility removed by accident yesterday 11/08. Stated her father has not had any antibiotics for 2 days. Used left arm due to previous issues noted re. right subclavian occlusion. Midline
placed without difficulty in left basilic vein. Excellent blood return noted. INDEPENDENT CONSULTANT to give dose of antibiotic to pt prior to leaving.
[2024-11-09 22:00] VITALS: BP 117/67
--- NOTE | 2024-11-09 23:38 | EDRN ---
Attempted to call report to Branden Stack [phone] - no answer
[2024-11-09 23:45] VITALS: BP 112/64
--- NOTE | 2024-11-10 00:04 | EDRN ---
Attempted to call report to Branden Stack again, call transferred but no one picked up after 6 minutes.
== END 2024-11-10 00:10 | disposition home or self-care (01) ==
LOC: EMR 20:04
PROVIDERS: EMERGENCY PHYSICIAN Emergency Medicine; FAMILY PHYSICIAN Internal Medicine
DX: Z45.018 Encounter for adjustment and management of other part of cardiac pacemaker (principal); Z86.19 Personal history of other infectious and parasitic diseases
CPT/HCPCS: 96374; 99284